=== PATIENT | male | born 1970 | race Caucasian/White ===

== ENCOUNTER 2020-04-19 12:15 | Inpatient (IN) | payer MEDICAID, SELFPAY ==
[2020-04-19] VITALS (7 sets, daily range): BP systolic 132–179; BP diastolic 67–90; PULSE 59–98; RESP 16–20; TEMP 36.3–36.5; O2SAT 98–100; BMI 24.7
--- NOTE | ~2020-04-19 | XR_ITS ---
EXAMINATION: XR abdomen/kub 1V EXAM DATE: 04/21/2020 15:45 INDICATION: Abdominal distention, constipation. TECHNIQUE: Frontal upright projection of the upper abdomen, frontal projection of the lower abdomen f or interpretation. Correlation is made to CT abdomen pelvis 04/19/2020. FINDINGS: There is moderate amount of colonic gas and stool. Nonobstructive bowel gas pattern. Lung bases are unremarkable. There are mild bony degenerative changes. There is no organomegaly. IMPRESSION: Moderate colonic stool and gas. Reviewed, dictated and finalized at location A.
--- NOTE | ~2020-04-19 | US_ITS ---
EXAMINATION: US right upper quadrant EXAM DATE: 04/20/2020 15:15 INDICATION: Pancreatitis, rule out gallstones. TECHNIQUE: Multiple grayscale and Doppler images of the abdomen right upper quadrant were obtained (b y a technologist who performed the scan) and subsequently reviewed. Comparison is made to prior exami nation from 03/08/2019. FINDINGS: The pancreatic head and body are normal in appearance. The pancreatic tail is not visualized. Mildl y echogenic liver parenchyma, hepatic steatosis. There are no focal liver lesions identified. Ther e is no evidence of intrahepatic biliary duct dilation. Portal venous flow was seen in the hepatoped al, normal direction and has normal Doppler waveform. No right-sided hydronephrosis. Common bile duct measures 4 mm, which is normal. The gallbladder wall is normal in thickness, with ex pected amount of distention. No sonographic evidence of pericholecystic fluid. There is no cholelit hiases. Technologist performing exam reports patient did not demonstrate sonographic Gan's sign. Please note that this sign is less reliable in patients who have received pain medication. IMPRESSION: 1. Hepatic steatosis. Reviewed, dictated and finalized at location A. IMPRESSION: 1. Hepatic steatosis.
--- NOTE | ~2020-04-19 | US_ITS ---
EXAMINATION: US venous doppler LE RT EXAM DATE: 04/20/2020 15:15 INDICATION: Right calf tenderness. TECHNIQUE: Multiple grayscale, color flow and Doppler images of the right lower extremity deep venous system were obtained and reviewed. There is no prior study for comparison. FINDINGS: The right common femoral, femoral and profunda veins demonstrate normal color flow, respira tory variation, augmentation and compressibility. Compressibility, color flow confirmed within the r ight popliteal, posterior tibial, peroneal, and greater saphenous veins. IMPRESSION: 1. No right lower extremity deep venous thrombosis. Reviewed, dictated and finalized at location A.
--- NOTE | ~2020-04-19 | CT_ITS ---
EXAMINATION: CT abdomen pelvis w con INDICATION: Pancreatitis, nausea and vomiting, abdominal pain TECHNIQUE: Computed tomographic images of the abdomen and pelvis were obtained after the administrati on of 100 cc of Omnipaque 350 intravenous contrast. The dose-length product (DLP) was 482.26 mGy-cm. Automated exposure control and iterative reconstruction technique were employed. COMPARISON: 04/15/2015 FINDINGS: Minimal dependent atelectasis is present in the lung bases. The heart size is normal. The l iver, spleen, gallbladder, and adrenal glands are normal. There is edema and enlargement of the head of the pancreas. There is edematous stranding of the peripancreatic fat. A small amount of fluid trac ks into the right anterior pararenal space and retroperitoneum. Mild wall thickening is seen in the s econd and third portions of the duodenum, likely secondary to pancreatic inflammation. The kidneys ar e unremarkable. There is calcified atherosclerosis of the aorta and many of the other arteries. No pa thologically enlarged abdominal or pelvic lymph nodes are identified. The appendix is normal. There i s no free intraperitoneal gas or evidence of bowel obstruction. Colonic diverticulosis is present wit hout evidence of diverticulitis. There is mild lumbar spondylosis. IMPRESSION: 1. Acute pancreatitis, likely interstitial edematous pancreatitis with acute peripancreatic fluid col lection. Reviewed, dictated and finalized at location B. IMPRESSION: 1. Acute pancreatitis, likely interstitial edematous pancreatitis with acute pe ripancreatic fluid collection.
[2020-04-19] MEDS: MORPHINE SULFATE 4 MG/ML INJ IV PUSH ×5 (12:49→21:27)
[2020-04-19] MEDS: SODIUM CHLORIDE 0.9% IV 1,000 ML 999 ML IV CONT (12:49)
[2020-04-19] MEDS: ONDANSETRON INJ 4 MG/2 ML VIAL IV PUSH ×2 (12:49→14:55)
[2020-04-19 12:50] LABS: Basophils Absolute Auto 0.1 K/mm3 (0.0-0.1); Basophils Percent Auto 0.5 % (0.2-1.2); Eosinophils Absolute Auto 0.1 K/mm3 (0-0.3); Eosinophils Percent Auto 0.7 % (0-4.4); Hematocrit 50.6 % (42.0-52.0); Hemoglobin 17.8 g/dL (14.0-18.0); Immature Granulocyte Absolute 0.07 K/mm3 (0.00-0.031); Immature Granulocyte Percent A 0.5 % (0-0.5); Lymphocytes Absolute Auto 1.79 K/mm3 (0.9-3.2); Lymphocytes Percent Auto 12.1 % (18.3-44.2); Mean Corpuscular HGB Conc 35.2 g/dl (32-36); Mean Corpuscular Hemoglobin 33.3 pg (26-34); Mean Corpuscular Volume 94.8 fl (80-100); Mean Platelet Volume 10.9 fl (7.4-10.4); Monocytes Percent Auto 6.7 % (2.6-8.5); Neutrophils Absolute Auto 11.8 K/mm3 (1.3-6.7); Neutrophils Percent Auto 79.5 % (45.5-73.1); Platelet Count Result 219 k/mm3 (150-375); Red Blood Count 5.34 M/mm3 (4.6-6.20); Red Cell Distribution Width 13.3 % (11.5-14.5); White Blood Count 14.9 K/mm3 (4.5-10.0)
--- NOTE | 2020-04-19 12:51 | ED.GENADULT ---
HPI - General Adult General Chief complaint: Abdominal Pain Stated complaint: Vomiting, Cramps Time Seen by Provider: 04/19/20 12:22 History of Present Illness HPI narrative: Patient is a 50-year-old male who presents ER with abdominal pain. Sudden onset this morning. Associated with nausea and vomiting. Patient reports pain is sharp and epigastric and radiates to the middle of his back. He has not had similar symptoms before. Reports he drank some alcohol last night. No food this morning. Has not had similar symptoms previously. Related Data Home Medications Medication Instructions Recorded Confirmed No Home Medications 04/19/20 04/19/20 Allergies Allergy/AdvReac Type Severity Reaction Status Date / Time No Known Allergies Allergy Verified 04/19/20 12:40 Review of Systems Review of Systems: All systems reviewed & are unremarkable except as noted in HPI and below Constitutional: Constitutional: Denies fever(s) and Denies weakness Cardiovascular: Cardiovascular: Denies chest pain and Denies radiating jaw, neck or arm pain Gastrointestinal: Gastrointestinal: Reports abdominal pain, Reports nausea and Reports vomiting PMFSH Past Medical History Medical History (Updated 04/19/20 @ 19:01 by Giovani Ontiveros MD) No pertinent past medical history Surgical History Surgical History (Updated 04/19/20 @ 13:13 by Giovani Ontiveros MD) No pertinent past surgical history Family History Family History (Updated 04/19/20 @ 18:34 by Esther Dunne RN) Father Lung cancer Heart disease Diabetes mellitus Social History Social History (Updated 04/19/20 @ 13:13 by Giovani Ontiveros MD) Alcohol intake: current Drinks per week: 30 Substance use: current Substance use type: marijuana Other substance usage details: marijuana 3 times day Last use: 04/18/2020 Gender identity (if verbalized by the patient): Male Spiritual care concerns: No Exam Narrative: Exam Narrative: GENERAL: Uncomfortable-appearing, well-nourished, and in mild distress. HEAD: Normocephalic, atraumatic. ENT: Mucous membranes moist. CHEST: Clear to auscultation. No respiratory distress. HEART: Regular rate and rhythm. Normal peripheral pulses. ABDOMEN: Soft, TTP in the epigastrium with guarding, no pulsatile mass, nondistended. EXTREMITIES: Normal range of motion. No edema. SKIN: Warm, dry, no rash. NEURO: Alert and oriented x3. Course Course Emergency Course: Admit to the hospitalist service. Multiple doses of pain medication given. Patient will be n.p.o. and hydrated. Vital Signs Vital signs: Vital Signs Temperature 97.6 F 04/19/20 12:17 Pulse Rate 59 L 04/19/20 12:17 Respiratory Rate 17 04/19/20 12:17 Blood Pressure 143/90 H 04/19/20 12:17 Pulse Oximetry 99 04/19/20 12:17 Temperature 97.3 F L 04/19/20 18:22 Pulse Rate 80 04/19/20 18:26 Respiratory Rate 20 04/19/20 18:26 Blood Pressure 132/70 04/19/20 18:26 Pulse Oximetry 99 04/19/20 18:26 Medical Decision Making Vital Signs Vital Signs: Vital Signs Temperature 97.6 F 04/19/20 12:17 Pulse Rate 59 L 04/19/20 12:17 Respiratory Rate 17 04/19/20 12:17 Blood Pressure 143/90 H 04/19/20 12:17 Pulse Oximetry 99 04/19/20 12:17 Temperature 97.3 F L 04/19/20 18:22 Pulse Rate 80 04/19/20 18:26 Respiratory Rate 20 04/19/20 18:26 Blood Pressure 132/70 04/19/20 18:26 Pulse Oximetry 99 04/19/20 18:26 Lab Data Result diagrams: 04/19/20 12:31 04/19/20 12:31 Labs: Lab Results 04/19/20 04/19/20 04/19/20 Range/Units 12:31 12:31 13:23 WBC 14.9 H (4.5-10.0) K/mm3 RBC 5.34 (4.6-6.20) M/mm3 Hgb 17.8 (14.0-18.0) g/dL Hct 50.6 (42.0-52.0) % MCV 94.8 (80-100) fl MCH 33.3 (26-34) pg MCHC 35.2 (32-36) g/dl RDW 13.3 (11.5-14.5) % Plt Count 219 (150-375) k/mm3 MPV 10.9 H (7.4-10.4) fl Immature Gran % (Auto) 0.5
[2020-04-19 13:36] LABS: Add Urine Microscopic? YES; Appearance Urine Cloudy (Clear); Bacteria Urine Trace /hpf; Bilirubin Urine Negative (Negative); Blood Urine Negative (Negative); Color Urine Yellow (Yellow); Glucose Urine UA Negative (Negative); Ketones Urine 1+ mg/dL (Negative); Leukocyte Esterase Ur Negative LEU/UL (Negative); Mucus Urine Rare /lpf; Nitrate Urine Negative (Negative); Protein Urine 2+ mg/dL (Negative); RBC Urine 0-2 /hpf (0-2); Specific Grav Ur 1.023 (1.001-1.035); Urobilinogen Urine Negative mg/dL (<2.0); WBC Urine 0-3 /hpf
[2020-04-19 13:37] LABS: Alanine Aminotransferase 39 U/L (4-50); Albumin Level 4.7 g/dL (3.5-5.1); Alkaline Phosphatase 95 U/L (38-126); Anion Gap 14.5 mmol/L (7-16); Aspartate Amino Transferase 29 U/L (17-59); Bilirubin,Total 0.6 mg/dL (0.2-1.3); Blood Urea Nitrogen 11 mg/dL (9-20); Calcium 9.7 mg/dL (8.4-10.2); Carbon Dioxide 25 mmol/L (22-30); Chloride 102 mmol/L (98-107); Estimated CRCL calculation 82 ml/min; Estimated Glomerular Filt Rate > 60; Glucose 158 mg/dL (75-110); Potassium 3.5 mmol/L (3.4-5.0); Sodium 138 mmol/L (137-145)
[2020-04-19 14:02] LABS: Lipase 4341 U/L (23-300)
[2020-04-19] MEDS: PANTOPRAZOLE SODIUM IV 40 MG VIAL IV PUSH (14:54)
--- NOTE | 2020-04-19 17:30 | PM.IMHP ---
H&P: HPI History of Present Illness Date/Time: 04/19/20 17:30 Chief complaint: Abdominal pain. Narrative: Robb Santoyo is a 23-lfhc-whw-male smoker with a longstanding history of alcohol abuse who presented to the emergency department earlier this afternoon via private vehicle from home for evaluation of abdominal pain. He has drank alcohol daily since about the age of 16, and in more recent years he has cut back on his drinking, now typically consuming 4 to 5 vodka drinks a night. Two nights ago, his son brought over 190 proof Everclear, of which he took a couple of swigs. He had the typical burning sensation with alcohol going down, but that sensation seemed to linger much longer and he had a burning pain throughout his stomach for several hours thereafter. Yesterday he still had some mild periumbilical discomfort, and he did not drink as much as usual however not long after drinking a screwdriver and 1/2 of a fuzzy navel, he developed a sudden onset of the worst pain of my life wrapping around my trunk which he describes as a severe ache / throbbing pain. It is occasionally sharp and will radiate into the back. He has not noticed any significant aggravating or alleviating factors. This morning he developed nausea and had 6 episodes of emesis and thus came in for evaluation. He was found to have acute pancreatitis on imaging and is being admitted in this setting. With further questioning, he denies having history of pancreatitis but tells me that over the past several months he has had intermittent abdominal discomfort, somewhat similar but to a lesser extent. He denies hematemesis, melena, and hematochezia. No chest pain or shortness of breath. He occasionally has GERD symptoms but he has no history of peptic ulcers. Review of Systems Review of Systems: Narrative: Twelve systems were reviewed with pertinent positives and negatives as per HPI. No fever. he denies recent cold and flu symptoms. No travel or sick contacts. He denies cough and shortness of breath. He has never had signs or symptoms of alcohol withdrawal, and specifically denies tremors, sweats, headache, and hallucinations. Except as documented, all other systems were reviewed and are negative. [facility] Past Medical History Medical History (Updated 04/19/20 @ 21:13 by Viki Cedillo PA-C) Alcoholism Tobacco dependence Surgical History Surgical History No pertinent past surgical history Family History Family History (Updated 04/19/20 @ 21:00 by Viki Cedillo PA-C) Father Lung cancer Heart disease Diabetes mellitus Other Alcoholism Social History Social History (Updated 04/19/20 @ 21:02 by Viki Cedillo PA-C) Social History: S urrogate decision maker: Rena Santoyo, . Code status: Full code. Smoking packs per day: 2 Smoking cigarettes per day: 40.0 Years smoked: 40 Smoking pack-years: 80.00 Smoking status: Current every day smoker Tobacco type: cigarettes and cigars Second hand tobacco smoke exposure: Yes Additional smoking assessment comments: Patient began smoking at age 12, and is now up to 2 packs a day. Alcohol intake: current Drinks per week: 30 Substance use: current Substance use type: marijuana Other substance usage details: Smokes marijuana 3 times a day. Last use: 04/18/2020 Additional living arrangements comments: Patient lives with his and their 5 children. Occupation/Education: unemployed Gender identity (if verbalized by the patient): Male Spiritual care concerns: No Meds Home Medications and Allergies Home Medications Medication Instructions Recorded Confirmed Type No Home Medications 04/19/20 04/19/20 History Allergies Allergy/AdvReac Type Severity Reaction Status Date / Time No Known Allergies Allergy Verified 04/19/20 12:40 Vital Signs Vital Signs - 24 hr 04/19/20 12:17 04/19/20 15
--- NOTE | 2020-04-19 18:10 | ADMGEN ---
This patient, Robb Santoyo, was admitted to Medical Room 346-01. Patient/family oriented to hospital policies and general routines including ID bracelet, bed and alarms, visiting hours, pain management, procedures, bathroom and other care routines, personal items, smoking policy, room service/diet, and visiting hours. Valuables list has been completed. Information on how to activate the Rapid Response Team has been discussed. Patient/Family are encouraged to report perceived risks to care and to ask questions if they do not understand what they are told or what they should do.
[2020-04-19] MEDS: SODIUM CHLORIDE 0.9% IV 1,000 ML 125 ML IV CONT (19:21)
[2020-04-19] MEDS: PROMETHAZINE HCL 25 MG/ML AMPUL 12.5 MG IV PUSH (21:27)
[2020-04-19] MEDS: THIAMINE HCL 200 MG/2 ML VIAL 100 MG IV PUSH (22:05)
[2020-04-20] VITALS (11 sets, daily range): BP systolic 143–163; BP diastolic 74–91; PULSE 74–86; RESP 16–18; TEMP 36.3–36.9; O2SAT 97–99
[2020-04-20] MEDS: MORPHINE SULFATE 4 MG/ML INJ IV PUSH ×2 (01:50→09:52)
[2020-04-20] MEDS: SODIUM CHLORIDE 0.9% IV 1,000 ML 125 ML IV CONT ×3 (03:54→20:40)
[2020-04-20] MEDS: PROMETHAZINE HCL 25 MG/ML AMPUL 12.5 MG IV PUSH ×4 (03:55→20:37)
[2020-04-20 06:33] LABS: Basophils Absolute Auto 0.1 K/mm3 (0.0-0.1); Basophils Percent Auto 0.4 % (0.2-1.2); Eosinophils Absolute Auto 0.1 K/mm3 (0-0.3); Eosinophils Percent Auto 0.9 % (0-4.4); Hematocrit 47.7 % (42.0-52.0); Hemoglobin 16.4 g/dL (14.0-18.0); Immature Granulocyte Absolute 0.05 K/mm3 (0.00-0.031); Immature Granulocyte Percent A 0.3 % (0-0.5); Lymphocytes Absolute Auto 2.15 K/mm3 (0.9-3.2); Lymphocytes Percent Auto 14.8 % (18.3-44.2); Mean Corpuscular HGB Conc 34.4 g/dl (32-36); Mean Corpuscular Hemoglobin 32.9 pg (26-34); Mean Corpuscular Volume 95.6 fl (80-100); Mean Platelet Volume 10.2 fl (7.4-10.4); Monocytes Absolute Auto 1.2 K/mm3 (0.1-0.6); Monocytes Percent Auto 8.3 % (2.6-8.5); Neutrophils Absolute Auto 10.9 K/mm3 (1.3-6.7); Neutrophils Percent Auto 75.3 % (45.5-73.1); Platelet Count Result 184 k/mm3 (150-375); Red Blood Count 4.99 M/mm3 (4.6-6.20); Red Cell Distribution Width 13.2 % (11.5-14.5); White Blood Count 14.5 K/mm3 (4.5-10.0)
[2020-04-20 08:17] LABS: Alanine Aminotransferase 28 U/L (4-50); Albumin Level 3.9 g/dL (3.5-5.1); Alkaline Phosphatase 68 U/L (38-126); Anion Gap 9 mmol/L (8-16); Aspartate Amino Transferase 23 U/L (17-59); Bilirubin,Total 0.5 mg/dL (0.2-1.3); Blood Urea Nitrogen 9 mg/dL (9-20); Calcium 8.6 mg/dL (8.4-10.2); Carbon Dioxide 24 mmol/L (22-30); Chloride 105 mmol/L (98-107); Estimated CRCL calculation 101 ml/min; Estimated Glomerular Filt Rate > 60; Glucose 110 mg/dL (75-110); Magnesium 1.6 mg/dL (1.6-2.3); Potassium 3.9 mmol/L (3.4-5.0); Sodium 138 mmol/L (137-145); Triglycerides 146 mg/dL (<150)
[2020-04-20 08:21] LABS: Lipase 8354 U/L (23-300)
[2020-04-20] MEDS: PANTOPRAZOLE SODIUM IV 40 MG VIAL IV PUSH ×2 (09:01→20:39)
[2020-04-20] MEDS: THIAMINE HCL 100 MG TABLET PO (10:55)
[2020-04-20] MEDS: FOLIC ACID 1 MG TABLET PO (11:46)
--- NOTE | 2020-04-20 12:25 | PM.IMPN ---
Progress Note: A&P Assessment and Plan (1) Acute pancreatitis: Code(s): K85.90 - Acute pancreatitis without necrosis or infection, unspecified Status: Acute Assessment and Plan: More than likely secondary to alcohol abuse. Lipase has increased to 8354. Supportive care with bowel rest, IV fluid rehydration, antiemetics, and analgesics as needed. Continue Protonix as he may very well have underlying gastritis. Will check RUQ US to rule out gallstone etiology Continue to trend lipase (2) Alcoholism: Code(s): F10.20 - Alcohol dependence, uncomplicated Status: Acute Assessment and Plan: He reports he drinks 6 beers daily. He denies ever having symptoms of alcohol withdrawal. [facility] protocol is in place Continue folic acid and thiamine supplementation. He seems motivated to curb his alcohol use. No symptoms of alcohol withdrawal at this time. (3) Tobacco dependence: Code(s): F17.200 - Nicotine dependence, unspecified, uncomplicated Status: Acute Assessment and Plan: He smokes 2 ppd. Nicotine patch available if needed. He declines need at this time. Continue to encourage smoking cessation. (4) Elevated blood pressure reading: Code(s): R03.0 - Elevated blood-pressure reading, without diagnosis of hypertension Status: Acute Assessment and Plan: Possibly related to pain. He has no documented history of HTN and is not on antihypertensives. Continue to trend closely as he may require antihypertensives. Consider adding agent if BP remains elevated. (5) Tenderness of right calf: Code(s): M79.661 - Pain in right lower leg Status: Acute Assessment and Plan: He complains of ongoing right calf pain and heaviness. He denies any injury to the area. No swelling or discoloration. Will check venous doppler to rule out DVT Subjective Date/time seen: 04/20/20 12:25 Interval history: Date of service: 04/20/2020 He is complaining of 8/10 diffuse abdominal pain that he describes as a squeezing sensation that wraps around to his back. He feels very nauseous. He vomited this morning. He endorses subjective fevers but denies chills. He has generalized body aches. He also complains of right calf tenderness and heaviness that has been ongoing several weeks. He denies shortness of breath, cough, chest pain, palpitations, weakness, dizziness, or lightheadedness. He has been NPO today. Review of Systems Review of Systems: Narrative: A 12 point review of systems was reviewed with pertinent positives and negatives as per HPI. Exam Narrative: Exam Narrative: Mr. Santoyo is a well nourished 50 year old male who is lying supine in bed. He appears comfortable and is in NARD. HR 81, BP 158/89, RR 16, T 97.6, 99% on room air Neuro: awake, alert and oriented x4, speech clear, no focal neuro deficits noted HEENMT: normocephalic, atraumatic, EOMI, sclerae anicteric, moist oral mucosa, normal oropharynx Neck: supple, no lymphadenopathy Respiratory: clear to auscultation bilaterally, nonlabored breathing Cardio: regular rate, regular rhythm with S1-S2 Abdomen: nondistended, normoactive bowel sounds, soft, diffusely tender to palpation, no rigidity or guarding Extremities: no edema, erythema, cyanosis, or clubbing, right calf is tender to palpation, Santo's sign negative, DP pulses 2+ bilaterally Skin: no rashes or lesions, warm and dry Psych: appropriate mood and affect Objective Data Vital Signs Vital Signs: Vital Signs - 24 hr 04/19/20 15:17 04/19/20 17:03 04/19/20 18:22 Temperature 97.3 F L Pulse Rate 74 66 83 Pulse Rate [Right Radial] Respiratory Rate 20 20 20 Blood Pressure 154/67 H 144/79 H 179/79 H Pulse Oximetry 99 99 98 04/19/20 18:26 04/19/20 21:54 04/19/20 21:55 Temperature 97.7 F 97.7 F Pulse Rate 80 98 98 Pulse Rate [Right Radial] Respiratory Rate 20 16 16 Blood Pressure 13
[2020-04-20] MEDS: MELATONIN 5 MG TABLET PO (20:39)
[2020-04-21] VITALS (7 sets, daily range): BP systolic 154–165; BP diastolic 84–93; PULSE 82–92; RESP 14–18; TEMP 36.6–37.1; O2SAT 97–100
[2020-04-21] MEDS: PROMETHAZINE HCL 25 MG/ML AMPUL 12.5 MG IV PUSH ×5 (02:37→22:16)
[2020-04-21] MEDS: SODIUM CHLORIDE 0.9% IV 1,000 ML 125 ML IV CONT ×3 (04:54→20:09)
[2020-04-21 05:54] LABS: Basophils Percent Auto 0.4 % (0.2-1.2); Eosinophils Absolute Auto 0.2 K/mm3 (0-0.3); Eosinophils Percent Auto 1.9 % (0-4.4); Hemoglobin 15.6 g/dL (14.0-18.0); Immature Granulocyte Absolute 0.05 K/mm3 (0.00-0.031); Immature Granulocyte Percent A 0.5 % (0-0.5); Lymphocytes Absolute Auto 2.45 K/mm3 (0.9-3.2); Lymphocytes Percent Auto 22.4 % (18.3-44.2); Mean Corpuscular HGB Conc 34.7 g/dl (32-36); Mean Corpuscular Hemoglobin 33.2 pg (26-34); Mean Corpuscular Volume 95.7 fl (80-100); Mean Platelet Volume 10.3 fl (7.4-10.4); Monocytes Percent Auto 9.2 % (2.6-8.5); Neutrophils Absolute Auto 7.2 K/mm3 (1.3-6.7); Neutrophils Percent Auto 65.6 % (45.5-73.1); Platelet Count Result 166 k/mm3 (150-375); Red Cell Distribution Width 13.2 % (11.5-14.5)
[2020-04-21 06:06] LABS: Alanine Aminotransferase 21 U/L (4-50); Albumin Level 3.7 g/dL (3.5-5.1); Alkaline Phosphatase 66 U/L (38-126); Anion Gap 9 mmol/L (8-16); Aspartate Amino Transferase 21 U/L (17-59); Bilirubin,Total 0.6 mg/dL (0.2-1.3); Blood Urea Nitrogen 8 mg/dL (9-20); Calcium 8.2 mg/dL (8.4-10.2); Carbon Dioxide 24 mmol/L (22-30); Chloride 104 mmol/L (98-107); Estimated CRCL calculation 101 ml/min; Estimated Glomerular Filt Rate > 60; Glucose 82 mg/dL (75-110); Lipase 1742 U/L (23-300); Potassium 3.8 mmol/L (3.4-5.0); Sodium 137 mmol/L (137-145)
[2020-04-21] MEDS: PANTOPRAZOLE SODIUM IV 40 MG VIAL IV PUSH ×2 (09:00→20:10)
[2020-04-21] MEDS: MELATONIN 5 MG TABLET PO (12:25)
[2020-04-21] MEDS: THIAMINE HCL 100 MG TABLET PO (12:25)
[2020-04-21] MEDS: FOLIC ACID 1 MG TABLET PO (13:01)
--- NOTE | 2020-04-21 14:43 | PM.IMPN ---
Progress Note: A&P Assessment and Plan (1) Acute pancreatitis: Qualifiers: Pancreatitis type: alcohol induced Acute pancreatitis complication: unspecified Qualified Code(s): K85.20 - Alcohol induced acute pancreatitis without necrosis or infection Code(s): K85.90 - Acute pancreatitis without necrosis or infection, unspecified Status: Acute Assessment and Plan: More than likely secondary to alcohol abuse. Lipase has declined to 1742. RUQ U/S shows no evidence of gallstone etiology. Supportive care with bowel rest, IV fluid rehydration, antiemetics, and analgesics as needed. Continue NPO diet at this time. Advance to clear liquids when tolerated. Continue Protonix as he may very well have underlying gastritis. Continue to trend lipase Given diffuse abdominal pain, nausea, vomiting, and inability to pass gas or stool, will check KUB for any evidence of obstruction. (2) Alcoholism: Code(s): F10.20 - Alcohol dependence, uncomplicated Status: Acute Assessment and Plan: He reports he drinks 6 beers daily. He denies ever having symptoms of alcohol withdrawal. [facility] protocol is in place Continue folic acid and thiamine supplementation. He seems motivated to curb his alcohol use. No symptoms of alcohol withdrawal at this time. (3) Tobacco dependence: Code(s): F17.200 - Nicotine dependence, unspecified, uncomplicated Status: Acute Assessment and Plan: He smokes 2 ppd. Nicotine patch available if needed. He declines need at this time. Continue to encourage smoking cessation. (4) Elevated blood pressure reading: Code(s): R03.0 - Elevated blood-pressure reading, without diagnosis of hypertension Status: Acute Assessment and Plan: Possibly related to pain. He has no documented history of HTN and is not on antihypertensives. Continue to trend closely as he may require antihypertensives. BP remains elevated, although pain is still quite severe. Will continue to monitor and consider addition of antihypertensive agent. (5) Tenderness of right calf: Code(s): M79.661 - Pain in right lower leg Status: Acute Assessment and Plan: He complains of ongoing right calf pain and heaviness. He denies any injury to the area. No swelling or discoloration. Venous Doppler is negative for DVT. Supportive care with heat or ice as needed. Subjective Date/time seen: 04/21/20 14:43 Interval history: Date of service: 04/21/2020 His pain is an improved today. He endorses 8/10 diffuse abdominal pain at this time that wraps around and radiates towards back. He has very brief relief with pain medication but his pain returns shortly thereafter. He is still NPO at this time. He tells me that he feels his abdomen is firm. He has not had a bowel movement or passed any gas. He has belched. He feels quite nauseous and has had small amounts of emesis today. He endorses subjective fever but denies chills. He denies weakness, dizziness, or lightheadedness. He denies shortness of breath, cough, chest pain, or palpitations. He denies any symptoms of alcohol withdrawal including agitation or tremors. He denies dysuria or hematuria. Review of Systems Review of Systems: Narrative: A 12 point review of systems was reviewed with pertinent positives and negatives as per HPI. Exam Narrative: Exam Narrative: Mr. Santoyo is a well nourished 50 year old male who is lying supine in bed. He appears comfortable and is in NARD. HR Eighty-three, BP 163/86, R 18, T 97.8?, 98% on room air Neuro: awake, alert and oriented x4, speech clear, no focal neuro deficits noted HEENMT: normocephalic, atraumatic, EOMI, sclerae anicteric, moist oral mucosa, normal oropharynx Neck: supple, no lymphadenopathy Respiratory: clear to auscultation bilaterally, nonlabored breathing Cardio: regular rate, regular rhythm with S1-S2 Abd
[2020-04-22] MEDS: PROMETHAZINE HCL 25 MG/ML AMPUL 12.5 MG IV PUSH ×6 (02:19→23:09)
[2020-04-22] MEDS: SODIUM CHLORIDE 0.9% IV 1,000 ML 125 ML IV CONT ×3 (04:22→20:23)
[2020-04-22 05:24] VITALS: BP 152/89; PULSE 84; RESP 14; TEMP 36.3; O2SAT 100
[2020-04-22 05:53] LABS: Hematocrit 41.7 % (42.0-52.0); Hemoglobin 14.6 g/dL (14.0-18.0); Mean Corpuscular Hemoglobin 33.3 pg (26-34); Mean Corpuscular Volume 95.2 fl (80-100); Mean Platelet Volume 10.2 fl (7.4-10.4); Platelet Count Result 163 k/mm3 (150-375); Red Blood Count 4.38 M/mm3 (4.6-6.20); Red Cell Distribution Width 12.8 % (11.5-14.5); White Blood Count 9.6 K/mm3 (4.5-10.0)
[2020-04-22 06:18] LABS: Alanine Aminotransferase 17 U/L (4-50); Albumin Level 3.5 g/dL (3.5-5.1); Alkaline Phosphatase 63 U/L (38-126); Anion Gap 9 mmol/L (8-16); Aspartate Amino Transferase 21 U/L (17-59); Bilirubin,Total 0.6 mg/dL (0.2-1.3); Blood Urea Nitrogen 10 mg/dL (9-20); Calcium 7.8 mg/dL (8.4-10.2); Carbon Dioxide 21 mmol/L (22-30); Chloride 105 mmol/L (98-107); Estimated CRCL calculation 115 ml/min; Estimated Glomerular Filt Rate > 60; Glucose 72 mg/dL (75-110); Lipase 971 U/L (23-300); Potassium 3.4 mmol/L (3.4-5.0); Sodium 135 mmol/L (137-145)
[2020-04-22 08:55] VITALS: RESP 16; O2SAT 100
[2020-04-22] MEDS: DOCUSATE SODIUM 100 MG CAPSULE PO ×2 (09:01→20:19)
[2020-04-22] MEDS: polyethylene glycoL 3350 17 GM POWD.PACK PO (09:02)
[2020-04-22] MEDS: PANTOPRAZOLE SODIUM IV 40 MG VIAL IV PUSH ×2 (09:02→20:19)
[2020-04-22] MEDS: FOLIC ACID 1 MG TABLET PO (09:03)
[2020-04-22] MEDS: THIAMINE HCL 100 MG TABLET PO (09:03)
[2020-04-22] MEDS: LIDOCAINE 5% PATCH 1 PATCH TRANSDERM (09:03)
--- NOTE | 2020-04-22 13:09 | PM.IMPN ---
Progress Note: A&P Assessment and Plan (1) Acute pancreatitis: Qualifiers: Acute pancreatitis complication: unspecified Pancreatitis type: alcohol induced Qualified Code(s): K85.20 - Alcohol induced acute pancreatitis without necrosis or infection Code(s): K85.90 - Acute pancreatitis without necrosis or infection, unspecified Status: Acute Assessment and Plan: More than likely secondary to alcohol abuse. Lipase has declined to 971. RUQ U/S shows no evidence of gallstone etiology. Supportive care with bowel rest, IV fluid rehydration, antiemetics, and analgesics as needed. Continue NPO diet at this time. Advance to clear liquids tonight Continue Protonix as he may very well have underlying gastritis. Continue to trend lipase (2) Alcoholism: Code(s): F10.20 - Alcohol dependence, uncomplicated Status: Acute Assessment and Plan: He reports he drinks 6 beers daily. He denies ever having symptoms of alcohol withdrawal. [facility] protocol is in place Continue folic acid and thiamine supplementation. He seems motivated to curb his alcohol use. No symptoms of alcohol withdrawal at this time. (3) Tobacco dependence: Code(s): F17.200 - Nicotine dependence, unspecified, uncomplicated Status: Acute Assessment and Plan: He smokes 2 ppd. Nicotine patch available if needed. He declines need at this time. Continue to encourage smoking cessation. (4) Elevated blood pressure reading: Code(s): R03.0 - Elevated blood-pressure reading, without diagnosis of hypertension Status: Acute Assessment and Plan: Possibly related to pain. He has no documented history of HTN and is not on antihypertensives. Will begin amlodipine for blood pressure control as BP remains consistently elevated Continue to monitor pressures closely. Expect modest elevation secondary to pain. (5) Tenderness of right calf: Code(s): M79.661 - Pain in right lower leg Status: Acute Assessment and Plan: He complains of ongoing right calf pain and heaviness. He denies any injury to the area. No swelling or discoloration. Venous Doppler is negative for DVT. Supportive care with heat or ice as needed. Subjective Date/time seen: 04/22/20 13:09 Interval history: Date of service: 04/22/2020 He is feeling a bit better today. His pain improved overnight but he did have another episode of rather significant pain this morning. He has been dry heaving but has not had any emesis. He still feels nauseous. He denies fevers, chills, or sweats. He had a little headache this morning. He denies dizziness or lightheadedness. He is still NPO. He would like to attempt clear liquids tonight. He reports passing a lot of gas today but has not had a bowel movement. He denies any urinary symptoms. He has not had any tremors. He did feel a bit agitated this morning but at this time he is calm. Review of Systems Review of Systems: Narrative: A 12 point review of systems was reviewed with pertinent positives and negatives as per HPI. Exam Narrative: Exam Narrative: Mr. Santoyo is a well nourished 50 year old male who is lying supine in bed. He appears comfortable and is in NARD. HR 84, BP 152/89, RR 14, T 97.3?, 100% on room air Neuro: awake, alert and oriented x4, speech clear, no focal neuro deficits noted, no tremors HEENMT: normocephalic, atraumatic, EOMI, sclerae anicteric, moist oral mucosa, normal oropharynx Neck: supple, no lymphadenopathy Respiratory: clear to auscultation bilaterally, nonlabored breathing Cardio: regular rate, regular rhythm with S1-S2 Abdomen: nondistended, normoactive bowel sounds, somewhat firm, nontender to palpation, no rigidity or guarding Extremities: no edema, erythema, cyanosis, clubbing, or tenderness to palpation, Santo's sign negative, DP pulses 2+ bilaterally Skin: no rashes or lesions, warm and dry
[2020-04-22 14:00] VITALS: BP 163/80; PULSE 85; RESP 18; TEMP 36.8; O2SAT 100
[2020-04-22 20:11] VITALS: BP 157/83; PULSE 82; RESP 18; TEMP 36.5; O2SAT 98
[2020-04-22] MEDS: MELATONIN 5 MG TABLET PO (23:08)
[2020-04-23] MEDS: PROMETHAZINE HCL 25 MG/ML AMPUL 12.5 MG IV PUSH ×2 (03:35→08:32)
[2020-04-23] MEDS: SODIUM CHLORIDE 0.9% IV 1,000 ML 125 ML IV CONT (04:36)
[2020-04-23 05:47] VITALS: BP 133/61; PULSE 72; RESP 18; TEMP 37.1; O2SAT 98
[2020-04-23 06:15] LABS: Hematocrit 42.2 % (42.0-52.0); Hemoglobin 14.8 g/dL (14.0-18.0); Mean Corpuscular HGB Conc 35.1 g/dl (32-36); Mean Corpuscular Hemoglobin 33.6 pg (26-34); Mean Corpuscular Volume 95.7 fl (80-100); Mean Platelet Volume 10.9 fl (7.4-10.4); Platelet Count Result 171 k/mm3 (150-375); Red Blood Count 4.41 M/mm3 (4.6-6.20); Red Cell Distribution Width 12.7 % (11.5-14.5); White Blood Count 8.7 K/mm3 (4.5-10.0)
[2020-04-23 06:35] LABS: Alanine Aminotransferase 19 U/L (4-50); Albumin Level 3.6 g/dL (3.5-5.1); Alkaline Phosphatase 73 U/L (38-126); Anion Gap 10 mmol/L (8-16); Aspartate Amino Transferase 24 U/L (17-59); Bilirubin,Total 0.8 mg/dL (0.2-1.3); Blood Urea Nitrogen 7 mg/dL (9-20); Calcium 8.1 mg/dL (8.4-10.2); Carbon Dioxide 21 mmol/L (22-30); Chloride 106 mmol/L (98-107); Estimated CRCL calculation 115 ml/min; Estimated Glomerular Filt Rate > 60; Glucose 96 mg/dL (75-110); Lipase 712 U/L (23-300); Potassium 3.6 mmol/L (3.4-5.0); Sodium 137 mmol/L (137-145)
[2020-04-23] MEDS: PANTOPRAZOLE SODIUM IV 40 MG VIAL IV PUSH ×2 (08:24→20:40)
[2020-04-23] MEDS: THIAMINE HCL 100 MG TABLET PO (08:37)
[2020-04-23] MEDS: LIDOCAINE 5% PATCH 1 PATCH TRANSDERM (08:37)
[2020-04-23] MEDS: polyethylene glycoL 3350 17 GM POWD.PACK PO (08:37)
[2020-04-23] MEDS: FOLIC ACID 1 MG TABLET PO (08:37)
[2020-04-23] MEDS: DOCUSATE SODIUM 100 MG CAPSULE PO ×2 (08:37→20:40)
[2020-04-23 11:32] VITALS: BMI 24.5
[2020-04-23 14:00] VITALS: BP 129/62; PULSE 81; RESP 18; TEMP 36.6; O2SAT 100
--- NOTE | 2020-04-23 16:08 | PM.IMPN ---
Progress Note: A&P Assessment and Plan (1) Acute pancreatitis: Qualifiers: Acute pancreatitis complication: unspecified Pancreatitis type: alcohol induced Qualified Code(s): K85.20 - Alcohol induced acute pancreatitis without necrosis or infection Code(s): K85.90 - Acute pancreatitis without necrosis or infection, unspecified Status: Acute Assessment and Plan: More than likely secondary to alcohol abuse. Lipase has declined to 712. RUQ U/S shows no evidence of gallstone etiology. Pain has significantly improved. Patient willing to advance diet even further this evening Supportive care with IV fluid rehydration earlier in stay, antiemetics, and analgesics as needed. Will do soft, low fat/low residue diet this evening Continue Protonix as he may very well have underlying gastritis. Continue to trend lipase Consider discharge in 1-2 days if continued clinical improvement (2) Alcoholism: Code(s): F10.20 - Alcohol dependence, uncomplicated Status: Acute Assessment and Plan: He reports he drinks 6 beers daily. He denies ever having symptoms of alcohol withdrawal. Discussed alcohol cessation in length with patient today. CIWA protocol is in place Continue folic acid and thiamine supplementation. He seems motivated to curb his alcohol use. No symptoms of alcohol withdrawal at this time. (3) Tobacco dependence: Code(s): F17.200 - Nicotine dependence, unspecified, uncomplicated Status: Acute Assessment and Plan: He smokes 2 ppd. Encouraged smoking cessation for at least 4 minutes Nicotine patch available if needed. He declines need at this time. Continue to encourage smoking cessation. (4) Elevated blood pressure reading: Code(s): R03.0 - Elevated blood-pressure reading, without diagnosis of hypertension Status: Acute Assessment and Plan: BP has significantly improved today. Possibly related to pain. He has no documented history of HTN and is not on antihypertensives. Continue to monitor pressures closely. Expect modest elevation secondary to pain. F/u with PCP (5) Tenderness of right calf: Code(s): M79.661 - Pain in right lower leg Status: Acute Assessment and Plan: He complains of ongoing right calf pain and heaviness. He denies any injury to the area. No swelling or discoloration. Venous Doppler is negative for DVT. Supportive care with heat or ice as needed. Subjective Date/time seen: 04/23/20 16:08 Interval history: Patient is a 50 yo male smoker with longstanding history of alcohol abuse who is here for management of acute pancreatitis. Patient tells me he is feeling much better this afternoon, even after having FLD this afternoon. His abdominal pain is very minimal this afternoon. He states he has not needed his IV pain med since this morning. He has no other complaints. He is willing to advance his diet this evening. Denies f/c/s, headaches, dizziness, lightheadedness, changes in v/h, cp/palpitations, sob/cough, n/v/d/c, changes in BMs, dysuria, hematuria, cloudy urine. Review of Systems Review of Systems: All systems reviewed & are unremarkable except as noted in HPI and below Exam Narrative: Exam Narrative: Patient sitting upright in bed at time of visit. Family in room visiting Const: General: cooperative, healthy appearing, comfortable, no acute distress, well developed, alert, awake and Physically active Orientation/consciousness: patient oriented x3 HENMT: Head: normocephalic and atraumatic General nose exam: Normal nares present Face and sinus: face symmetric Mouth: Yes moist mucous membranes Throat: posterior oropharynx normal Eyes: General: appearance normal, both eyes and a
[2020-04-23] MEDS: MELATONIN 5 MG TABLET PO (20:40)
[2020-04-23 21:47] VITALS: BP 143/74; PULSE 76; RESP 18; TEMP 36.6; O2SAT 99
[2020-04-24 05:33] LABS: Hematocrit 43.8 % (42.0-52.0); Hemoglobin 15.4 g/dL (14.0-18.0); Mean Corpuscular HGB Conc 35.2 g/dl (32-36); Mean Corpuscular Hemoglobin 32.9 pg (26-34); Mean Corpuscular Volume 93.6 fl (80-100); Platelet Count Result 205 k/mm3 (150-375); Red Blood Count 4.68 M/mm3 (4.6-6.20); Red Cell Distribution Width 12.7 % (11.5-14.5); White Blood Count 8.5 K/mm3 (4.5-10.0)
[2020-04-24 05:36] VITALS: BP 153/83; PULSE 75; RESP 18; TEMP 36.2; O2SAT 99
[2020-04-24 05:54] LABS: Anion Gap 7 mmol/L (8-16); Blood Urea Nitrogen 7 mg/dL (9-20); Calcium 8.8 mg/dL (8.4-10.2); Carbon Dioxide 27 mmol/L (22-30); Chloride 105 mmol/L (98-107); Estimated CRCL calculation 101 ml/min; Estimated Glomerular Filt Rate > 60; Glucose 103 mg/dL (75-110); Lipase 1042 U/L (23-300); Magnesium 2.2 mg/dL (1.6-2.3); Potassium 4.1 mmol/L (3.4-5.0); Sodium 139 mmol/L (137-145)
[2020-04-24] MEDS: THIAMINE HCL 100 MG TABLET PO (08:20)
[2020-04-24] MEDS: PANTOPRAZOLE 40 MG TABLET PO (08:20)
[2020-04-24] MEDS: FOLIC ACID 1 MG TABLET PO (08:20)
[2020-04-24] MEDS: DOCUSATE SODIUM 100 MG CAPSULE PO (08:20)
--- NOTE | 2020-04-24 11:37 | PM.DS ---
DS: Admitting Diagnosis Admitting Diagnosis Admitting Diagnosis: Acute pancreatitis without necrosis or infection, unspecified DS: Discharge Diagnosis Discharge Diagnosis (1) Acute pancreatitis: Qualifiers: Acute pancreatitis complication: unspecified Pancreatitis type: alcohol induced Qualified Code(s): K85.20 - Alcohol induced acute pancreatitis without necrosis or infection Code(s): K85.90 - Acute pancreatitis without necrosis or infection, unspecified Status: Acute Assessment and Plan: More than likely secondary to alcohol abuse. Lipase has slightly increased to 1042 today, although patient asymptomatic, not requiring any pain medications or antimetics . RUQ U/S shows no evidence of gallstone etiology. Patient tolerating soft, low fat/low residue diet. Does note getting ice cream last night for unclear reasons; reiterated low fat diet Supportive care with IV fluid rehydration earlier in stay, antiemetics, and analgesics as needed. Will do soft, low fat/low residue diet at discharge; advance diet as tolerated over the next week F/u with PCP Will prescribe PPI at discharge for possible gastritis Continue to trend lipase early next week discharge home today (2) Alcoholism: Code(s): F10.20 - Alcohol dependence, uncomplicated Status: Acute Assessment and Plan: He reports he drinks 6 beers daily. He denies ever having symptoms of alcohol withdrawal. Discussed alcohol cessation in length with patient again today. CIWA protocol is in place Folic acid and thiamine supplementation during stay He seems motivated to curb his alcohol use. No symptoms of alcohol withdrawal at this time. (3) Tobacco dependence: Code(s): F17.200 - Nicotine dependence, unspecified, uncomplicated Status: Acute Assessment and Plan: He smokes 2 ppd. Encouraged smoking cessation for at least 4 minutes again today Nicotine patch available if needed during stay. (4) Elevated blood pressure reading: Code(s): R03.0 - Elevated blood-pressure reading, without diagnosis of hypertension Status: Acute Assessment and Plan: BP elevated again today. Patient feels anxious in hospital as well. Possibly related to pain as well. He has no documented history of HTN and is not on antihypertensives. He states he has BP cuff at home and is agreeable to check once daily and f/u with PCP F/u with PCP once established (5) Tenderness of right calf: Code(s): M79.661 - Pain in right lower leg Status: Acute Assessment and Plan: He complains of ongoing right calf pain and heaviness. He denies any injury to the area. No swelling or discoloration. Improved today. Venous Doppler is negative for DVT. Supportive care with heat or ice as needed. DS: Summary Hospital Course Reason for hospitalization: Alcohol induced pancreatitis Hospital Course: Patient is a 50 yo M with long standing history of smking and alcohol abuse who presented to the ED on 04/19 via private vehicle from home for evaluation of abdominal pain. Patient had been drinking alcohol daily since the age of 16; he had been drinking the day of presentation as well. While in the ED, Ct of abd/pelvis showed acute pancreatitis and lipase was elevated to 4341. Patient admitted under this setting. Please see H&P for further details. Presenting VS: Temp Pulse Resp BP Pulse Ox 97.6 F 59 L 17 143/90 H 99 04/19/20 12:17 04/19/20 12:17 04/19/20 12:17 04/19/20 12:17 04/19/20 12:17 Presenting Pertinent labs: lipase 4341 (peak 6354, 1042 on 04/24). CBC, chemistry, UA otherwise unremarkable Micro: noen Imaging: Abdomen/Pelvis CT 04/19/20 16:02 IMPRESSION: 1. Acute pancreatitis, likely interstitial maddison
== END 2020-04-24 13:12 | disposition home or self-care (01) | DRG 282 ==
LOC: ANHED 16:27 → ANH3MED 16:54
PROVIDERS: Physician Assistant; Admitting Provider Family Medicine; Emergency Provider Emergency Medicine; Visit Provider Physician Assistant
DX: K85.20 Alcohol induced acute pancreatitis without necrosis or infection (principal); F10.20 Alcohol dependence, uncomplicated; F17.210 Nicotine dependence, cigarettes, uncomplicated; R03.0 Elevated blood-pressure reading, without diagnosis of hypertension; M79.661 Pain in right lower leg
CPT/HCPCS: 36415; 74018; 74177; 76705; 80048; 80053; 81001; 83690; 83735; 84478; 85025; 85027; 93971; 96361; 96374; 96375; 96376; 99285; A9270; C9113; G0378; G0379; J1170; J2270; J2405; J2550; J3411; J7030; Q9967

== ENCOUNTER 2021-01-13 13:42 | Emergency (ER) | payer OTHER, SELFPAY ==
[2021-01-13 13:53] VITALS: BP 135/76; PULSE 101; RESP 16; TEMP 36.4; O2SAT 100
--- NOTE | 2021-01-13 13:59 | ED.MALEGU ---
HPI - Male Genitourinary General Chief complaint: Urogenital-Male Stated complaint: Swollen Testicle Source: patient and RN notes reviewed Limitations: no limitations History of Present Illness HPI Narrative: The patient, previously mostly healthy, presents with swollen testicle. Patient states he has at least a week long history of gradual onset , right testicle pain that is mild, worse with pressure better with elevation. Patient states he had a recent experimental heterosexual perianal sex. No fever, abdominal pain, rash, discharge; patient advised to inform partner of his diagnosis Related Data Allergies Allergy/AdvReac Type Severity Reaction Status Date / Time No Known Allergies Allergy Verified 01/16/21 08:28 Review of Systems Review of Systems: Narrative: General/Constitutional: No weight loss,fever Eyes: N0: Redness,discharge Ears/Nose/Throat: No: Epistaxis,ear discharge Respiratory: Denies: Hemoptysis Gastrointestinal: No Vomiting, Bleeding-rectal Skin: No Lumps, eruption Neurologic: No Focal Weakness,Sz Hematologic: Denies: Petechiae/Purpura Psychiatric: No: Suicida ideationl All Other Systems: Reviewed and Negative [facility] Past Medical History Medical History Alcoholism Tobacco dependence Surgical History Surgical History No pertinent past surgical history Family History Family History Father Lung cancer Heart disease Diabetes mellitus Other Alcoholism Social History Social History Social History: S urrogate decision maker: Rena Santoyo, . Code status: Full code. Smoking packs per day: 2 Smoking cigarettes per day: 40.0 Years smoked: 15 Smoking pack-years: 30.00 Smoking status: Current every day smoker Tobacco type: cigarettes Second hand tobacco smoke exposure: Yes Additional smoking assessment comments: Patient began smoking at age 12, and is now up to 2 packs a day. Alcohol intake: current Drinks per week: 8 Substance use: current Substance use type: marijuana Other substance usage details: Smokes marijuana 3 times a day. Last use: 04/18/2020 Additional living arrangements comments: Patient lives with his and their 5 children. Gender identity (if verbalized by the patient): Male Spiritual care concerns: No Comments At time of signature, agree with nursing past medical, surgical, social and family history. There is no relevant family history pertinent to the presenting complaint Exam Narrative: Exam Narrative: General Appearance: Well appearing, No distress, Conjunctiva clear Ears: External ear normal Nose: Normal nose Mouth/Throat: Normal appearing, Normal lips Neck: Supple Respiratory: Airway patent, No respiratory distress Cardiovascular: RRR Abdomen: Soft, Non-tender, circumcised phallus bilateral descended testicles, with right testicular swelling gege posteriorly Musculoskeletal: Full ROM Skin: Warm, Dry Neurological: A&O x3, Normal affect Course Vital Signs Vital signs: Vital Signs Temperature 97.6 F 01/13/21 13:53 Pulse Rate 101 H 01/13/21 13:53 Respiratory Rate 16 01/13/21 13:53 Blood Pressure 135/76 01/13/21 13:53 Pulse Oximetry 100 01/13/21 13:53 Temperature 97.6 F 01/13/21 13:53 Pulse Rate 101 H 01/13/21 13:53 Respiratory Rate 16 01/13/21 13:53 Blood Pressure 135/76 01/13/21 13:53 Pulse Oximetry 100 01/13/21 13:53 MDM - Male Genitourinary Lab Data Labs: Lab Results 01/13/21 Range/Units 13:50 C.trachomatis RNA (TMA) Detected A (Not Detected) N.gonorrhoeae RNA (TMA) Not detected (Not Detected) Discharge Plan Discharge Clinical Impression: Epididymitis, Chlamydia trachomatis infection Patient Disposi
[2021-01-13] MEDS: cefTRIAXone 1 GM VIAL 0.5 GM IM (14:09)
== END 2021-01-13 14:38 | disposition home or self-care (01) ==
PROVIDERS: Emergency Provider Emergency Medicine
DX: N45.1 Epididymitis (principal); A74.9 Chlamydial infection, unspecified; F17.210 Nicotine dependence, cigarettes, uncomplicated
CPT/HCPCS: 81003; 87086; 87491; 87591; 96372; 99213; G0463; J0696

== ENCOUNTER 2021-01-15 02:08 | Inpatient (IN) | payer OTHER, SELFPAY ==
[2021-01-15] VITALS (7 sets, daily range): BP systolic 139–173; BP diastolic 69–92; PULSE 58–88; RESP 16–26; TEMP 36.1–36.9; O2SAT 95–100; BMI 25.9
--- NOTE | ~2021-01-15 | CT_ITS ---
EXAMINATION: CT abdomen pelvis w con EXAM DATE: 01/15/2021 03:32 INDICATION: Abdominal pain. Nausea. TECHNIQUE: Spiral CT of the abdomen and pelvis was performed following intravenous injection of 100 m L Omnipaque 350. Axial, coronal and sagittal images of the abdomen and pelvis were reviewed. The do se-length product (DLP) for this examination was 453.27 mGy-cm. The exposure was tailored according to patient size (auto mA exposure control), and iterative reconstruction (ASIR) was used as additiona l dose reduction technique. Comparison is made to prior examination from 04/19/2020. FINDINGS: Pancreatic head and uncinate are edematous, also edema between this and the duodenum. Proba chris acute uncomplicated pancreatitis, correlate with amylase and lipase levels. There was similar skye earance on prior study. The liver, spleen, adrenal glands and pancreas are otherwise unremarkable. G allbladder is unremarkable. No biliary obstruction. Portal and splenic veins are patent. Kidneys e nhance symmetrically. There is no hydronephrosis. The prostate is unremarkable. The bladder is un remarkable. There is no retroperitoneal or pelvic lymphadenopathy. There is mild scattered arterio sclerotic disease. Slight dilation of the lower abdominal aorta to 2.6 cm versus 2.1 cm above. Small bilateral inguinal fat-containing hernias. The appendix is normal. There is mild to moderate sigmoid colonic diverticulosis. There is no adjace nt inflammatory change to suggest diverticulitis. The stomach and small bowel are unremarkable. Ther e is expected amount of colonic stool. No free intraperitoneal gas. The heart is normal in size. There are no pericardial or pleural effusions. The lung bases are unremarkable. There are no osteo blastic or osteolytic lesions identified. IMPRESSION: 1. Findings consistent with acute uncomplicated pancreatitis. 2. Mild to moderate sigmoid diverticulosis. 3. Mildly aneurysmal lower abdominal aorta. 4. Small inguinal hernias. Reviewed, dictated and finalized at location B.
--- NOTE | ~2021-01-15 | US_ITS ---
EXAMINATION: US scrotum doppler EXAM DATE: 01/15/2021 09:11 INDICATION: Scrotal pain and swelling, right side. TECHNIQUE: Multiple grayscale and Doppler images of the testicles and scrotum were obtained bilateral ly. There is no prior study for comparison. FINDINGS: Right testicle measures 4.2 x 3.7 x 2.8 cm and is morphologically normal. Low resistance Doppler jazlyn w confirmed, possibly slightly hypervascular compared to contralateral side. The epididymis body appe ars edematous and hypervascular. There is a moderate hydrocele. There is no hydrocele or varicocele. Left testicle measures 4.8 x 2.6 x 2.5 cm and is morphologically normal. Low resistance Doppler flow confirmed. The epididymis is unremarkable. There is no hydrocele or varicocele. IMPRESSION: 1. Right-sided epididymitis or epididymoorchitis. 2. Moderate right hydrocele. Reviewed, dictated and finalized at location B.
--- NOTE | 2021-01-15 02:19 | ECG_ITS ---
Measurements Intervals Freedom Rate: 80 P: 73 IL: 144 QRS: 73 QRSD: 140 T: 52 QT: 369 QTc: 428 Interpretive Statements SINUS RHYTHM RIGHT BUNDLE BRANCH BLOCK BASELINE ARTIFACT- II, III, AVR, AVF, V2-V6 ABNORMAL ECG Electronically Signed On 01-15-2021 7:08:31 CDT by Olivier Feliciano D.O.
--- NOTE | 2021-01-15 02:31 | ED.GENADULT ---
HPI - General Adult General Chief complaint: Chest Pain Stated complaint: Chest pain Time Seen by Provider: 01/15/21 02:20 History of Present Illness HPI narrative: Patient is a 50-year-old gentleman who presents the emergency department with chief complaint of epigastric pain. The patient reports he has prior history of pancreatitis and reports this evening he had sudden onset of pain in the epigastric area patient reports has had episodes of nausea and vomiting. Patient states that the pain is severe and worse than whenever he had pancreatitis in the past. Patient reports that its been about a week or so since he last drank patient reports that he has had a negative stress test in the last couple years. Related Data Allergies Allergy/AdvReac Type Severity Reaction Status Date / Time No Known Allergies Allergy Verified 01/15/21 02:08 Review of Systems Review of Systems: Narrative: A 10 system review of systems was completed on the patient and is negative except for what is stated in the HPI. Nursing and ancillary documentation was reviewed. COUNTS INCLUDE 234 BEDS AT THE [facility] Past Medical History Medical History Alcoholism Tobacco dependence Surgical History Surgical History No pertinent past surgical history Family History Family History Father Lung cancer Heart disease Diabetes mellitus Other Alcoholism Social History Social History Social History: S urrogate decision maker: Rena Santoyo, . Code status: Full code. Smoking packs per day: 2 Smoking cigarettes per day: 40.0 Years smoked: 40 Smoking pack-years: 80.00 Smoking status: Current every day smoker Tobacco type: cigarettes and cigars Second hand tobacco smoke exposure: Yes Additional smoking assessment comments: Patient began smoking at age 12, and is now up to 2 packs a day. Alcohol intake: current Drinks per week: 30 Substance use: current Substance use type: marijuana Other substance usage details: Smokes marijuana 3 times a day. Last use: 04/18/2020 Additional living arrangements comments: Patient lives with his and their 5 children. Gender identity (if verbalized by the patient): Male Spiritual care concerns: No Exam Narrative: Exam Narrative: GENERAL: Well-appearing, well-nourished, and in no acute distress. HEAD: Normocephalic, atraumatic. EYES: PERRLA and EOMI. ENT: Nares clear, no rhinorrhea or epistaxis. Mucous membranes moist. NECK: Supple. CHEST: Clear to auscultation. No respiratory distress. HEART: Regular rate and rhythm. No murmur heard. Normal peripheral pulses. ABDOMEN: Soft, nontender, nondistended, normal active bowel sounds. EXTREMITIES: Normal range of motion. No edema. SKIN: Warm, dry, no rash. NEURO: No focal deficits. Alert and oriented x3. PSYCH: Normal mood and affect. Course Vital Signs Vital signs: Vital Signs Temperature 36.4 C 01/15/21 02:14 Pulse Rate 77 01/15/21 02:14 Respiratory Rate 18 01/15/21 02:14 Blood Pressure 147/69 H 01/15/21 02:14 Pulse Oximetry 100 01/15/21 02:14 Temperature 36.4 C 01/15/21 02:14 Pulse Rate 88 01/15/21 04:11 Respiratory Rate 18 01/15/21 04:11 Blood Pressure 162/92 H 01/15/21 04:11 Pulse Oximetry 99 01/15/21 04:11 Medical Decision Making Vital Signs Vital Signs: Vital Signs Temperature 36.4 C 01/15/21 02:14 Pulse Rate 77 01/15/21 02:14 Respiratory Rate 18 01/15/21 02:14 Blood Pressure 147/69 H 01/15/21 02:14 Pulse Oximetry 100 01/15/21 02:14 Temperature 36.4 C 01/15/21 02:14 Pulse Rate 88 01/15/21 04:11 Respiratory Rate 18 01/15/21 04:11 Blood Pressure 162/92 H 01/15/21 04:11 Pulse Oximetry 99 01/15/21 04:11 Lab Data
[2021-01-15] MEDS: ONDANSETRON INJ 4 MG/2 ML VIAL IV PUSH ×5 (02:42→20:42)
[2021-01-15] MEDS: SODIUM CHLORIDE 0.9% IV 1,000 ML 999 ML IV CONT (02:43)
[2021-01-15] MEDS: MORPHINE SULFATE (*CRX) 4 MG/ML INJ IV PUSH ×7 (02:48→20:42)
[2021-01-15 03:00] LABS: Basophils Absolute Auto 0.1 K/mm3 (0.0-0.1); Basophils Percent Auto 0.7 % (0.2-1.2); Eosinophils Absolute Auto 0.5 K/mm3 (0-0.3); Eosinophils Percent Auto 5.3 % (0-4.4); Hematocrit 44.7 % (42.0-52.0); Hemoglobin 15.6 g/dL (14.0-18.0); Immature Granulocyte Absolute 0.06 K/mm3 (0.00-0.031); Immature Granulocyte Percent A 0.6 % (0-0.5); Lymphocytes Absolute Auto 2.52 K/mm3 (0.9-3.2); Lymphocytes Percent Auto 25.3 % (18.3-44.2); Mean Corpuscular HGB Conc 34.9 g/dl (32-36); Mean Corpuscular Hemoglobin 33.7 pg (26-34); Mean Corpuscular Volume 96.5 fl (80-100); Mean Platelet Volume 10.4 fl (7.4-10.4); Monocytes Absolute Auto 0.9 K/mm3 (0.1-0.6); Monocytes Percent Auto 9.1 % (2.6-8.5); Neutrophils Absolute Auto 5.9 K/mm3 (1.3-6.7); Platelet Count Result 258 k/mm3 (150-375); Red Blood Count 4.63 M/mm3 (4.6-6.20)
[2021-01-15 03:02] LABS: INR 0.9
[2021-01-15 03:03] LABS: Partial Thromboplastin Time 31.7 SECONDS (22.3-36.8)
[2021-01-15 03:04] LABS: Potassium 3.5 mmol/L (3.4-5.0)
[2021-01-15 03:19] LABS: Alanine Aminotransferase 32 U/L (4-50); Albumin Level 4.1 g/dL (3.5-5.1); Alkaline Phosphatase 105 U/L (38-126); Anion Gap 8 mmol/L (8-16); Aspartate Amino Transferase 36 U/L (17-59); Bilirubin,Total 0.3 mg/dL (0.2-1.3); Blood Urea Nitrogen 10 mg/dL (9-20); Calcium 9.5 mg/dL (8.4-10.2); Carbon Dioxide 25 mmol/L (22-30); Chloride 107 mmol/L (98-107); Estimated CRCL calculation 75 ml/min; Estimated Glomerular Filt Rate > 60; Glucose 98 mg/dL (75-110); Sodium 140 mmol/L (137-145)
[2021-01-15 03:30] LABS: Lipase 4084 U/L (23-300)
[2021-01-15 03:45] LABS: Troponin I < 0.012 ng/mL (0.000-0.034)
[2021-01-15 03:51] LABS: Add Urine Microscopic? YES; Appearance Urine Cloudy (Clear); Bacteria Urine Trace /hpf; Bilirubin Urine Negative (Negative); Blood Urine 1+ (Negative); Color Urine Yellow (Yellow); Glucose Urine UA Negative (Negative); Ketones Urine 1+ mg/dL (Negative); Leukocyte Esterase Ur 2+ LEU/UL (Negative); Mucus Urine Rare /lpf; Nitrate Urine Negative (Negative); Protein Urine 1+ mg/dL (Negative); Specific Grav Ur 1.017 (1.001-1.035); Squamous Epithelial Cell Urine Rare /hpf (Few); WBC Urine >75 /hpf
[2021-01-15 04:06] LABS: Troponin I < 0.012 ng/mL (0.000-0.034)
--- NOTE | 2021-01-15 04:18 | PM.IMHP ---
H&P: HPI History of Present Illness Date/Time: 01/15/21 04:18 Chief Complaint: abdominal pain Narrative: Patient is a 50-year-old gentleman who presents the emergency department with chief complaint of epigastric pain. The patient reports he has prior history of pancreatitis and reports this evening he had sudden onset of pain in the epigastric area patient reports has had episodes of nausea and vomiting. he reprots over the past week, he has been having some fever, not recoreded. he was in here with right testicle swelling for a week or so along wwith testicular pain, he is sexually active. no urinary symptoms rpeorted with no uinray frequnecy, urgency or burning sensation. he does reports some discomfrot on right groin area since about a week. he had received antibiotic shot in his buttock and was given two different antiboitcs which he is currently taking. Review of Systems Review of Systems: Narrative: - CONSTITUTIONAL: Denies weight loss, reports some fever and chills. - HEENT: Denies changes in vision and hearing - RESPIRATORY: Denies SOB and cough. - CV: Denies palpitations and CP. - GI: reports upper abdominal pain, nausea, vomiting and denies diarrhea. - : Denies dysuria and urinary frequency. - MSK: Denies myalgia and joint pain. - SKIN: Denies rash and pruritus. - NEUROLOGICAL: Denies headache and syncope. - PSYCHIATRIC: Denies recent changes in mood. Denies anxiety and depression. All systems reviewed & are unremarkable except as noted in HPI and below PMFSH Past Medical History Medical History Alcoholism Tobacco dependence Surgical History Surgical History No pertinent past surgical history Family History Family History Father Lung cancer Heart disease Diabetes mellitus Other Alcoholism Social History Social History Social History: S urrogate decision maker: Rena Santoyo, . Code status: Full code. Smoking packs per day: 2 Smoking cigarettes per day: 40.0 Years smoked: 15 Smoking pack-years: 30.00 Smoking status: Current every day smoker Tobacco type: cigarettes Second hand tobacco smoke exposure: Yes Additional smoking assessment comments: Patient began smoking at age 12, and is now up to 2 packs a day. Alcohol intake: current Drinks per week: 8 Substance use: current Substance use type: marijuana Other substance usage details: Smokes marijuana 3 times a day. Last use: 04/18/2020 Additional living arrangements comments: Patient lives with his and their 5 children. Gender identity (if verbalized by the patient): Male Spiritual care concerns: No Meds Home Medications and Allergies Home Medications Medication Instructions Recorded Confirmed Type ciprofloxacin HCl 500 mg PO Q12H #10 tablet 01/13/21 Rx doxycycline monohydrate 100 mg PO BID #20 cap 01/13/21 Rx tramadol 50 - 75 mg PO Q6H PRN #15 tablet 01/13/21 Rx Allergies Allergy/AdvReac Type Severity Reaction Status Date / Time No Known Allergies Allergy Verified 01/15/21 02:08 Vital Signs Vital Signs - 24 hr 01/15/21 02:14 01/15/21 02:23 01/15/21 04:11 Temperature 97.6 F Pulse Rate 77 83 88 Respiratory Rate 18 26 H 18 Blood Pressure 147/69 H 162/81 H 162/92 H Pulse Oximetry 100 100 99 Exam Narrative: Exam Narrative: GENERAL: The patient is well developed, not in acute distress HEENT: Nonicteric sclerae, PERRLA, EOMI. Oropharynx clear. Moist mucous membranes. Conjunctivae appear well perfused. CHEST: Chest wall is nontender. HEART: Regular rate and rhythm without murmur, rubs, or gallops LUNGS: Clear to auscultation bilaterally. no respiratory distress ABDOMEN: Soft, positive bowel sounds, tender epiga
--- NOTE | 2021-01-15 05:23 | ADMGEN ---
This patient, Robb Santoyo, was admitted to 3 [facility] Surg Room 331-01. Patient/family oriented to hospital policies and general routines including ID bracelet, bed and alarms, visiting hours, pain management, procedures, bathroom and other care routines, personal items, smoking policy, room service/diet, and visiting hours. Information on how to activate the Rapid Response Team has been discussed. Patient/Family are encouraged to report perceived risks to care and to ask questions if they do not understand what they are told or what they should do.
[2021-01-15] MEDS: SODIUM CHLORIDE 0.9% IV 1,000 ML 150 ML IV CONT ×3 (05:58→20:42)
[2021-01-15 08:47] LABS: Troponin I < 0.012 ng/mL (0.000-0.034)
--- NOTE | 2021-01-15 14:48 | PM.IMPN ---
Progress Note: A&P Assessment and Plan (1) Epididymitis: Code(s): N45.1 - Epididymitis Status: Acute Assessment and Plan: Consult urology p is on fluids watch scrotal edema does not worse (2) Elevated blood pressure reading: Code(s): R03.0 - Elevated blood-pressure reading, without diagnosis of hypertension Status: Acute Assessment and Plan: watch Bp, bp was high on admission (3) Alcoholism: Code(s): F10.20 - Alcohol dependence, uncomplicated Status: Acute Assessment and Plan: Adviced to quit watch for DT (4) Acute pancreatitis: Qualifiers: Acute pancreatitis complication: unspecified Pancreatitis type: unspecified pancreatitis type Qualified Code(s): K85.90 - Acute pancreatitis without necrosis or infection, unspecified Code(s): K85.90 - Acute pancreatitis without necrosis or infection, unspecified Status: Acute Assessment and Plan: monitor lipase levels, npo with fluids and pain medications (5) Tobacco dependence: Code(s): F17.200 - Nicotine dependence, unspecified, uncomplicated Status: Acute Assessment and Plan: adviced to quit smoking Subjective Date/time seen: 01/15/21 14:48 Interval history: 50-year-old gentleman who presents the emergency department with chief complaint of epigastric pain. The patient reports he has prior history of pancreatitis and alcoholism Review of Systems Review of Systems: All systems reviewed & are unremarkable except as noted in HPI and below Exam Const: General: cooperative and healthy appearing; No in distress Nutritional Appearance: overweight Orientation/consciousness: oriented to person HENMT: Head: normal to inspection Resp: Effort & Inspection: no respiratory distress Auscultation: no rhonchi and no wheezes Cardio: Rate: regular rate Rhythm: regular rhythm GI: Inspection: normal to inspection GI Palp: No abdominal tenderness, No Guarding due to palpation present (GI) and No Hepatomegaly present Auscultation: normal bowel sounds Neuro: General: oriented to person Objective Data Vital Signs Vital Signs: Vital Signs - 24 hr 01/15/21 02:14 01/15/21 02:23 01/15/21 04:11 Temperature 36.4 C Pulse Rate 77 83 88 Respiratory Rate 18 26 H 18 Blood Pressure 147/69 H 162/81 H 162/92 H Pulse Oximetry 100 100 99 01/15/21 05:15 01/15/21 09:06 01/15/21 14:00 Temperature 36.1 C L 36.4 C Pulse Rate 58 L 78 Respiratory Rate 18 20 Blood Pressure 173/76 H 160/84 H Pulse Oximetry 95 95 100 Intake/Output Intake/Output: Intake & Output 01/12/21 01/13/21 01/14/21 01/15/21 23:59 23:59 23:59 23:59 Intake Total 1999 Balance 1999 Meds/Results Medications: Active Medications Generic Name Dose Route Start Last Admin Trade Name Freq PRN Reason Stop Dose Admin Doxycycline Hyclate 100 mg 01/15/21 09:00 01/15/21 13:02 Doxycycline Hyclate 100 Mg Tablet PO Not Given Q12HR ROSAURA Sodium Chloride 1,000 mls @ 150 mls/hr 01/15/21 04:15 01/15/21 14:28 Normal Saline Iv IV CONT 150 mls/hr .Q6H40M ROSAURA Administration Ceftriaxone Sodium/Dextrose 1 gm in 50 mls @ 100 mls/hr 01/15/21 05:00 01/15/21 05:58 Rocephin 1 Gm/D5w 50 Ml IVPB 100 mls/hr Q24H ROSAURA Administration Morphine Sulfate 4 mg 01/15/21 04:13 01/15/21 14:33 Morphine Sulfate (*Crx) 4 Mg/Ml Inj IV PUSH 4 mg Q2H PRN Administration Pain Rated 7-10 Ondansetron HCl 4 mg 01/15/21 04:13 01/15/21 12:35 Ondansetron Inj 4 Mg/2 Ml Vial IV PUSH 4 mg Q4H PRN Administration Nausea Radiology Results: ITS Impressions Abdomen/Pelvis CT 01/15/21 08:30 IMPRESSION: 1. Findings consistent with acute uncomplicated pancreatitis. 2. Mild to moderate sigmoid diverticulosis. 3. Mildly aneurysmal lower abdominal aorta. 4. Small inguinal hernias. Scrotum Ultrasound 01/15/21 09:14 IMPRESSION: 1. Right-sided epididymitis or
[2021-01-16] MEDS: ONDANSETRON INJ 4 MG/2 ML VIAL IV PUSH ×4 (01:49→20:27)
[2021-01-16] MEDS: MORPHINE SULFATE (*CRX) 4 MG/ML INJ IV PUSH ×7 (01:49→22:56)
[2021-01-16] MEDS: SODIUM CHLORIDE 0.9% IV 1,000 ML 150 ML IV CONT ×3 (03:35→20:23)
[2021-01-16 06:00] VITALS: BP 136/66; PULSE 73; RESP 16; TEMP 37.1; O2SAT 100
[2021-01-16 06:25] LABS: Alanine Aminotransferase 21 U/L (4-50); Albumin Level 3.2 g/dL (3.5-5.1); Alkaline Phosphatase 74 U/L (38-126); Anion Gap 4 mmol/L (8-16); Aspartate Amino Transferase 23 U/L (17-59); Bilirubin,Total 0.3 mg/dL (0.2-1.3); Blood Urea Nitrogen 7 mg/dL (9-20); Calcium 8.1 mg/dL (8.4-10.2); Carbon Dioxide 25 mmol/L (22-30); Chloride 109 mmol/L (98-107); Estimated CRCL calculation 101 ml/min; Estimated Glomerular Filt Rate > 60; Glucose 80 mg/dL (75-110); Lipase 975 U/L (23-300); Potassium 3.8 mmol/L (3.4-5.0); Sodium 138 mmol/L (137-145)
--- NOTE | 2021-01-16 12:22 | WPDURCON ---
Assessment and Plan Assessment and plan (1) Epididymitis: Code(s): N45.1 - Epididymitis Status: Acute Assessment and Plan: Continue Rocephin, would recommend at least 10-14 days of fci antibiotics s/p discharge. Elevate the scrotum, apply ICE PRN and ok to take NSAID's PRN. (2) Hydrocele: Code(s): N43.3 - Hydrocele, unspecified Status: Acute Assessment and Plan: Elevated with scrotal support, will resolve with time. No intervention needed, very slight on exam. (3) Chlamydia trachomatis infection of genitourinary site: Code(s): A56.2 - Chlamydial infection of genitourinary tract, unspecified Status: Acute Assessment and Plan: We discussed avoiding anal and oral intercourse d/t increased risk of infection. His partner also needs to be tested and treated for Chlamydia or recurrent infection is likely. No furthe evaluation needed, will follow up in the office in 2-3 weeks. Urology Consult Note HPI Date Seen: 01/16/21 Requesting Physician: Gomez Senior MD Primary Care Provider: CUSTOM DECORATING CONSULTANT PHYSICIAN Consult Narrative Narrative: Robb Santoyo SR is a 50 year old male who was seen in the ER initially on 01/13/2021 for right testicle pain with swelling. The pain was first noticed on 01/05/2021 when he ran into a kitchen cabinet pull and continued after that. He was discharged home with Ciprofloxacin 10 days BID, #20 and took one day or 2 pills of the Cipro then came back to the ER yesterday for epigastric pain and continued epididymitis. He was admitted for treatment of pancreatitis and is currently on Rocephin. He had a CT scan which showed normal upper tracts, but his Scrotal US reveals right epididymitis and a small right hydrocele. His WBC is 10.0 and creatinine is 0.80. He states that he had anal intercourse with his as well as oral intercourse on the 01/04/2021 and fell asleep and did not urinate after intercourse which he thinks may have caused the infection as this has never happened before. He denies a previous history of UTI's, stones or BPH. He also denies dysuria, hematuria, frequency, urgency, hesitancy, straining or hematospermia. He tried to wear a scrotal support last night but it was too uncomfortable, so he is elevating with an ice pack at this time which is helping the pain. His urine cultures from 01/13/2021 and 01/15/2021 were negative but his Chlamydia blood work came back positive which is likely contributing to his symptoms. Review of Systems Cardiovascular: Cardiovascular: Denies chest pain Respiratory: Respiratory: Reports no additional respiratory complaints Gastrointestinal: Gastrointestinal: Reports abdominal pain, Denies nausea and Denies vomiting Genitourinary: Genitourinary: Denies hematospermia, Denies hematuria, Denies dysuria, Denies flank pain, Reports testicular pain, Denies urinary frequency, Denies urinary hesitancy and Denies urinary urgency [facility] Past Medical History Medical History Alcoholism Tobacco dependence Surgical History Surgical History No pertinent past surgical history Family History Family History Father Lung cancer Heart disease Diabetes mellitus Other Alcoholism Social History Social History Social History: S urrogate decision maker: Rean Santoyo, . Code status: Full code. Smoking packs per day: 2 Smoking cigarettes per day: 40.0 Years smoked: 15 Smoking pack-years: 30.00 Smoking status: Current every day smoker Tobacco type: cigarettes Second hand tobacco smoke exposure: Yes Additional smoking assessment comments: Patient began smoking at age 12, and is now up to 2 packs a day. Alcohol intake: current Drinks per week: 8 Substance use: current Subst
--- NOTE | 2021-01-16 13:30 | PM.IMPN ---
Progress Note: A&P Assessment and Plan (1) Epididymitis: Code(s): N45.1 - Epididymitis Status: Acute Assessment and Plan: Consult urology pt is currently being treated for epididymitis/ UTI/ Chlamydial infection with IV ROCEPHIN (2) Elevated blood pressure reading: Code(s): R03.0 - Elevated blood-pressure reading, without diagnosis of hypertension Status: Acute Assessment and Plan: Bp is better pt is in less pain today. (3) Alcoholism: Code(s): F10.20 - Alcohol dependence, uncomplicated Status: Acute Assessment and Plan: Adviced to quit watch for DT, no signs so far. (4) Acute pancreatitis: Qualifiers: Acute pancreatitis complication: unspecified Pancreatitis type: unspecified pancreatitis type Qualified Code(s): K85.90 - Acute pancreatitis without necrosis or infection, unspecified Code(s): K85.90 - Acute pancreatitis without necrosis or infection, unspecified Status: Acute Assessment and Plan: lipase coming down nice from @4000 to 900- pt can start clear diet. (5) Tobacco dependence: Code(s): F17.200 - Nicotine dependence, unspecified, uncomplicated Status: Acute Assessment and Plan: Adviced to quit smoking Subjective Date/time seen: 01/16/21 13:30 Interval history: 50-year-old gentleman who presents the emergency department with chief complaint of epigastric pain. The patient reports he has prior history of pancreatitis and alcoholism. Pt also has complaints of scrotal swelling. Review of Systems Review of Systems: All systems reviewed & are unremarkable except as noted in HPI and below Exam Const: General: cooperative and healthy appearing; No in distress Nutritional Appearance: overweight Orientation/consciousness: oriented to person HENMT: Head: normal to inspection Resp: Effort & Inspection: no respiratory distress Auscultation: no rhonchi and no wheezes Cardio: Rate: regular rate Rhythm: regular rhythm GI: Inspection: normal to inspection Auscultation: normal bowel sounds : Other: R scrotum enlarged cf left tender to touch no skin surface changes, scrotum enlarged but not red or swollen. Neuro: General: oriented to person Objective Data Vital Signs Vital Signs: Vital Signs - 24 hr 01/15/21 14:00 01/15/21 21:27 01/16/21 06:00 Temperature 36.4 C 36.9 C 37.1 C Pulse Rate 78 77 73 Respiratory Rate 20 16 16 Blood Pressure 160/84 H 139/69 136/66 Pulse Oximetry 100 99 100 Intake/Output Intake/Output: Intake & Output 01/13/21 01/14/21 01/15/21 01/16/21 23:59 23:59 23:59 23:59 Intake Total 3050 2049 Output Total 680 Balance 2370 0 Meds/Results Medications: Active Medications Generic Name Dose Route Start Last Admin Trade Name Freq PRN Reason Stop Dose Admin Chlordiazepoxide HCl 10 mg 01/15/21 15:28 Chlordiazepoxide (*Crx) 10 Mg Capsule PO Q6H PRN Delirium Sodium Chloride 1,000 mls @ 150 mls/hr 01/15/21 04:15 01/16/21 11:07 Normal Saline Iv IV CONT 150 mls/hr .Q6H40M ROSAURA Administration Ceftriaxone Sodium/Dextrose 1 gm in 50 mls @ 100 mls/hr 01/15/21 05:00 01/16/21 05:13 Rocephin 1 Gm/D5w 50 Ml IVPB Infused Q24H ROSAURA Infusion Morphine Sulfate 4 mg 01/15/21 04:13 01/16/21 11:07 Morphine Sulfate (*Crx) 4 Mg/Ml Inj IV PUSH 4 mg Q2H PRN Administration Pain Rated 7-10 Ondansetron HCl 4 mg 01/15/21 04:13 01/16/21 08:10 Ondansetron Inj 4 Mg/2 Ml Vial IV PUSH 4 mg Q4H PRN Administration Nausea Radiology Results: ITS Impressions Abdomen/Pelvis CT 01/15/21 08:30 IMPRESSION: 1. Findings consistent with acute uncomplicated pancreatitis. 2. Mild to moderate sigmoid diverticulosis. 3. Mildly aneurysmal lower abdominal aorta. 4. Small inguinal hernias. Scrotum Ultrasound 01/15/21 09:14 IMPRESSION: 1. Right-sided epididymitis or epididymoorchitis. 2. Moderate r
[2021-01-16 14:00] VITALS: BP 124/77; PULSE 76; RESP 20; TEMP 36.7; O2SAT 100
[2021-01-16] MEDS: NICOTINE (*PBKC) 21 MG PATCH 1 PATCH TRANSDERM (16:04)
[2021-01-16 21:59] VITALS: BP 152/81; PULSE 82; RESP 20; TEMP 36.4; O2SAT 100
[2021-01-17] MEDS: MORPHINE SULFATE (*CRX) 4 MG/ML INJ IV PUSH ×4 (01:27→08:23)
[2021-01-17] MEDS: ONDANSETRON INJ 4 MG/2 ML VIAL IV PUSH ×2 (01:27→06:04)
[2021-01-17] MEDS: SODIUM CHLORIDE 0.9% IV 1,000 ML 150 ML IV CONT ×2 (01:34→08:23)
[2021-01-17 05:59] VITALS: BP 114/69; PULSE 91; RESP 20; TEMP 36.5; O2SAT 98
--- NOTE | 2021-01-17 07:23 | WPDUROPN2 ---
Progress Note: A&P Assessment and Plan (1) Epididymitis: Code(s): N45.1 - Epididymitis Status: Acute Assessment and Plan: When ready for discharge - Doxycycline and Cipro x10 days (for documented Chlamydia infection) (2) Hydrocele: Code(s): N43.3 - Hydrocele, unspecified Status: Acute Assessment and Plan: Elevated with scrotal support, will resolve with time. No intervention needed, very slight on exam. (3) Chlamydia trachomatis infection of genitourinary site: Code(s): A56.2 - Chlamydial infection of genitourinary tract, unspecified Status: Acute Subjective Subjective Date/Time Seen: 01/17/21 07:23 No complaints - voiding well and minimal testicular discomfort Review of Systems Cardiovascular: Cardiovascular: Denies chest pain, Denies lightheadedness, Denies palpitations and Denies dyspnea Respiratory: Respiratory: Denies dyspnea Gastrointestinal: Gastrointestinal: Denies diarrhea, Denies nausea and Denies vomiting Genitourinary: Genitourinary: Denies hematuria and Denies dysuria Endocrine: Endocrine: Denies palpitations Exam Cardio: Rate: regular rate : Scrotum: no ecchymosis, not edematous and Hydrocele present on the right Testes: epididymal induration on the right and epididymal tenderness on the right Extrem: General: no edema Objective Data Vital Signs Vital Signs: Vital Signs - 24 hr 01/16/21 14:00 01/16/21 21:59 01/17/21 05:59 Temperature 98.1 F 97.6 F 97.7 F Pulse Rate 76 82 91 Respiratory Rate 20 20 20 Blood Pressure 124/77 152/81 H 114/69 Pulse Oximetry 100 100 98 Intake/Output Intake/Output: Intake & Output 01/14/21 01/15/21 01/16/21 01/17/21 23:59 23:59 23:59 23:59 Intake Total 3050 3050 1800 Output Total 680 2300 Balance 2370 3050 -500 Meds/Results Medications: Active Medications Generic Name Dose Route Start Last Admin Trade Name Freq PRN Reason Stop Dose Admin Chlordiazepoxide HCl 10 mg 01/15/21 15:28 Chlordiazepoxide (*Crx) 10 Mg Capsule PO Q6H PRN Agitation Sodium Chloride 1,000 mls @ 150 mls/hr 01/15/21 04:15 01/17/21 01:34 Normal Saline Iv IV CONT 150 mls/hr .Q6H40M ROSAURA Administration Ceftriaxone Sodium/Dextrose 1 gm in 50 mls @ 100 mls/hr 01/15/21 05:00 01/17/21 05:58 Rocephin 1 Gm/D5w 50 Ml IVPB Infused Q24H ROSAURA Infusion Morphine Sulfate 4 mg 01/15/21 04:13 01/17/21 06:04 Morphine Sulfate (*Crx) 4 Mg/Ml Inj IV PUSH 4 mg Q2H PRN Administration Pain Rated 7-10 Nicotine 1 patch 01/16/21 15:00 01/16/21 16:04 Nicotine (*Pbkc) 21 Mg Patch TRANSDERM 1 patch QAM ROSAURA Administration Ondansetron HCl 4 mg 01/15/21 04:13 01/17/21 06:04 Ondansetron Inj 4 Mg/2 Ml Vial IV PUSH 4 mg Q4H PRN Administration Nausea Radiology Results: ITS Impressions Abdomen/Pelvis CT 01/15/21 08:30 IMPRESSION: 1. Findings consistent with acute uncomplicated pancreatitis. 2. Mild to moderate sigmoid diverticulosis. 3. Mildly aneurysmal lower abdominal aorta. 4. Small inguinal hernias. Scrotum Ultrasound 01/15/21 09:14 IMPRESSION: 1. Right-sided epididymitis or epididymoorchitis. 2. Moderate right hydrocele.
[2021-01-17] MEDS: NICOTINE (*PBKC) 21 MG PATCH 1 PATCH TRANSDERM (08:25)
[2021-01-17 11:21] LABS: Lipase 114 U/L (23-300)
--- NOTE | 2021-01-17 12:25 | PM.IMPN ---
Progress Note: A&P Assessment and Plan (1) Epididymitis: Code(s): N45.1 - Epididymitis Status: Acute Assessment and Plan: Consult urology pt is currently being treated for epididymitis/ UTI/ Chlamydial infection with IV ROCEPHIN add doxycycline and ciprofloxacin for 10 days pt adviced retesting in 2 weeks time and contact tracing to other sexual partners (2) Elevated blood pressure reading: Code(s): R03.0 - Elevated blood-pressure reading, without diagnosis of hypertension Status: Acute Assessment and Plan: Bp is better pt is in less pain today. (3) Alcoholism: Code(s): F10.20 - Alcohol dependence, uncomplicated Status: Acute Assessment and Plan: Adviced to quit watch for DT, no signs so far. (4) Acute pancreatitis: Qualifiers: Acute pancreatitis complication: unspecified Pancreatitis type: unspecified pancreatitis type Qualified Code(s): K85.90 - Acute pancreatitis without necrosis or infection, unspecified Code(s): K85.90 - Acute pancreatitis without necrosis or infection, unspecified Status: Acute Assessment and Plan: lipase coming down nice advance diet as directed (5) Tobacco dependence: Code(s): F17.200 - Nicotine dependence, unspecified, uncomplicated Status: Acute Assessment and Plan: Adviced to quit smoking, patch prescibed Subjective Date/time seen: 01/17/21 12:25 Interval history: 50-year-old gentleman who presents the emergency department with chief complaint of epigastric pain. The patient reports he has prior history of pancreatitis and alcoholism. Pt also has complaints of scrotal swelling. Found to have epidermitis and chlamydia infection. Pt feels like he is getting better less abdominal pain tolerating clear diet Review of Systems Review of Systems: All systems reviewed & are unremarkable except as noted in HPI and below Exam Narrative: Exam Narrative: GENERAL: The patient is well developed CHEST: Chest wall is nontender. HEART: Regular rate and rhythm without murmur, rubs, or gallops LUNGS: Clear to auscultation bilaterally. no respiratory distress ABDOMEN: Soft, positive bowel sounds, tender epigastric region, no organomegaly. SKIN: No rash, no excessive bruising, petechiae, or purpura. NEUROLOGIC: Cranial nerves II-XII intact, alert and oriented x 3, no gross motor deficits EXTREMITIES: no edema, cyanosis or clubbing Genitals: right scrotal swelling present mildly tender to touch Objective Data Vital Signs Vital Signs: Vital Signs - 24 hr 01/16/21 14:00 01/16/21 21:59 01/17/21 05:59 Temperature 36.7 C 36.4 C 36.5 C Pulse Rate 76 82 91 Respiratory Rate 20 20 20 Blood Pressure 124/77 152/81 H 114/69 Pulse Oximetry 100 100 98 Intake/Output Intake/Output: Intake & Output 01/14/21 01/15/21 01/16/21 01/17/21 23:59 23:59 23:59 23:59 Intake Total 3050 3050 3040 Output Total 680 2300 Balance 2370 3050 740 Meds/Results Medications: Active Medications Generic Name Dose Route Start Last Admin Trade Name Freq PRN Reason Stop Dose Admin Hydrocodone Bitart/Acetaminophen 1 tab 01/17/21 12:03 Hydrocodone/Acetaminophen (*Crx) 5-325 Mg Tablet PO Q8H PRN Pain Rated 4-10 Chlordiazepoxide HCl 10 mg 01/15/21 15:28 Chlordiazepoxide (*Crx) 10 Mg Capsule PO Q6H PRN Agitation Ceftriaxone Sodium/Dextrose 1 gm in 50 mls @ 100 mls/hr 01/15/21 05:00 01/17/21 05:58 Rocephin 1 Gm/D5w 50 Ml IVPB Infused Q24H ROSAURA Infusion Nicotine 1 patch 01/16/21 15:00 01/17/21 08:25 Nicotine (*Pbkc) 21 Mg Patch TRANSDERM 1 patch QAM ROSAURA Administration Ondansetron HCl 4 mg 01/15/21 04:13 01/17/21 06:04 Ondansetron Inj 4 Mg/2 Ml Vial IV PUSH 4 mg Q4H PRN Administration Nausea Radiology Results: ITS Impressions Abdomen/Pelvis CT 01/15/21 08:30 IMPRESSION: 1. Findings consistent with acute uncomplicated pancreat
[2021-01-17 14:00] VITALS: BP 138/58; PULSE 80; RESP 16; TEMP 36.6; O2SAT 100
[2021-01-17] MEDS: CIPROFLOXACIN 500 MG TAB PO (20:41)
[2021-01-17] MEDS: DOXYCYCLINE HYCLATE 100 MG TABLET PO (20:42)
[2021-01-17 22:00] VITALS: BP 144/83; PULSE 80; RESP 18; TEMP 36.1; O2SAT 98
[2021-01-18 05:43] VITALS: BP 138/80; PULSE 71; RESP 18; TEMP 36.4; O2SAT 100
[2021-01-18 08:00] VITALS: PULSE 71; RESP 18; O2SAT 100
[2021-01-18] MEDS: DOXYCYCLINE HYCLATE 100 MG TABLET PO (08:25)
[2021-01-18] MEDS: CIPROFLOXACIN 500 MG TAB PO (08:25)
[2021-01-18] MEDS: NICOTINE (*PBKC) 21 MG PATCH 1 PATCH TRANSDERM (08:26)
--- NOTE | 2021-01-18 09:01 | PM.DS ---
DS: Admitting Diagnosis Admitting Diagnosis Admitting Diagnosis: Abdominal pain DS: Discharge Diagnosis Discharge Diagnosis (1) Epididymitis: Code(s): N45.1 - Epididymitis Status: Acute Assessment and Plan: Consult urology pt is currently being treated for epididymitis/ UTI/ Chlamydial infection with IV ROCEPHIN pt to continue on doxycycline and ciprofloxacin for 10 days pt advised retesting in 2 weeks time and contact tracing to other sexual partners Pt seen by urology offered ice and scrotal support no need to drain scrotum. pt can take ibuprofen for pain control. (2) Elevated blood pressure reading: Code(s): R03.0 - Elevated blood-pressure reading, without diagnosis of hypertension Status: Acute Assessment and Plan: Bp is better pt is in less pain today. BP is 138/80 (3) Alcoholism: Code(s): F10.20 - Alcohol dependence, uncomplicated Status: Acute Assessment and Plan: Advised to quit alcohol, no signs of DT in the hospital. (4) Acute pancreatitis: Qualifiers: Acute pancreatitis complication: unspecified Pancreatitis type: unspecified pancreatitis type Qualified Code(s): K85.90 - Acute pancreatitis without necrosis or infection, unspecified Code(s): K85.90 - Acute pancreatitis without necrosis or infection, unspecified Status: Acute Assessment and Plan: Lipase coming down, pt is tolerating regular diet (5) Tobacco dependence: Code(s): F17.200 - Nicotine dependence, unspecified, uncomplicated Status: Acute Assessment and Plan: Adviced to quit smoking, patch prescibed DS: Summary Hospital Course Hospital Course: 50-year-old gentleman who presents the emergency department with chief complaint of epigastric pain. The patient reports he has prior history of pancreatitis and alcoholism. Pt also has complaints of scrotal swelling. Found to have epididymitis and chlamydia infection. Pt feels like he is getting better, lipase is normal, pt is tolerating regular diet now and is ready to go home. Time Spent with Patient Time attestation: Total time spent providing and/or coordinating discharge services:40 minutes on day of dischrage Exam Narrative: Exam Narrative: GENERAL: The patient is well developed CHEST: Chest wall is nontender. HEART: Regular rate and rhythm without murmur, rubs, or gallops LUNGS: Clear to auscultation bilaterally. no respiratory distress ABDOMEN: Soft, positive bowel sounds, tender epigastric region, no organomegaly. SKIN: No rash, no excessive bruising, petechiae, or purpura. NEUROLOGIC: Cranial nerves II-XII intact, alert and oriented x 3, no gross motor deficits EXTREMITIES: no edema, cyanosis or clubbing Genitals: right scrotal swelling present mildly tender to touch DS: Data Data Completed and Pending Labs on day of discharge: Labs from last 24 hours 01/17/21 11:05 Lipase 114 Discharge Plan Discharge Attending physician on discharge: Mary Haines Consulting providers: Marvin Holloway ; Kelly Moser Discharging Clinician: Mary Haines Anticipated Discharge Date/Time: 01/18/21 08:56 Patient Disposition: Home, Self-Care Activity: as tolerated Diet: regular Discharge Instructions: Urology Instructions: Elevate the scrotum with a scrotal support to improve swelling, apply ICe to the scrotum as needed for pain and inflammation. Ok to take NSAID's for pain and inflammation. Call the office to schedule a follow up appointment in 2-3 weeks. Repeat CHLAMYDIA testing in 2 weeks time, contact tracing is advised Patient Instructions: Antibiotic Form, How to Stop Smoking (DC), Pancreatitis (DC) Stand Alone Forms: General Discharge Information Follow-up/Referrals: Kelly Moser MD [Physician] - Discharge Medications: Continued doxycycline monohydrate 100 mg capsule 100 mg PO BID Qty: 20 RF: 0 ciprofloxacin HCl 500 mg
[2021-01-18 09:21] LABS: Lipase 111 U/L (23-300)
== END 2021-01-18 11:25 | disposition home or self-care (01) | DRG 282 ==
LOC: ANHED 04:17 → ANH3MEDSUR 04:52
PROVIDERS: Admitting Provider Internal Medicine; Emergency Provider Emergency Medicine; Visit Provider Family Medicine
DX: K85.90 Acute pancreatitis without necrosis or infection, unspecified (principal); N45.1 Epididymitis; A56.19 Other chlamydial genitourinary infection; N43.3 Hydrocele, unspecified; N39.0 Urinary tract infection, site not specified; F10.20 Alcohol dependence, uncomplicated; F17.210 Nicotine dependence, cigarettes, uncomplicated; R03.0 Elevated blood-pressure reading, without diagnosis of hypertension; Z79.899 Other long term (current) drug therapy
CPT/HCPCS: 36415; 74177; 76870; 80053; 81001; 83605; 83690; 84484; 85025; 85610; 85730; 87086; 93005; 93976; 96361; 96365; 96375; 96376; 99285; A9270; G0378; G0379; J0696; J2270; J2405; J7030; Q9967

== ENCOUNTER 2021-07-30 19:31 | Emergency (ER) | payer OTHER, SELFPAY ==
[2021-07-30 19:39] VITALS: BP 150/78; PULSE 92; RESP 16; TEMP 36; O2SAT 98
--- NOTE | 2021-07-30 19:50 | ED.DENTAL ---
HPI - Dental/Oral General Chief complaint: Dental/Oral Stated complaint: tooth pain Time Seen by Provider: 07/30/21 19:50 Source: patient Mode of arrival: ambulatory Limitations: no limitations History of Present Illness HPI Narrative: Robb Santoyo is a 51 yo male with no PMH [facility] that started last night, she has lower right molar pain and molar 31. Does not have a dentist. Daily smoker daily drinker-states that Tylenol area and Advil is not helping with the pain Related Data Home Medications Medication Instructions Recorded Confirmed No Home Medications 07/30/21 07/30/21 Allergies Allergy/AdvReac Type Severity Reaction Status Date / Time No Known Allergies Allergy Verified 07/30/21 19:53 Review of Systems Review of Systems: CONSTITUTIONAL: Denies fever, chills, sweats. EYES: Denies visual changes, redness, discharge. ENT: Denies rhinorrhea, congestion, sore throat, otalgia. Dental pain right lower molar tooth #31 CARDIOVASCULAR: Denies chest pain, palpitations, edema. RESPIRATORY: Denies dyspnea, wheezing, cough GASTROINTESTINAL: Denies abdominal pain, nausea, vomiting, diarrhea. GENITOURINARY: Denies dysuria, hematuria, abnormal discharge SKIN: Denies rash or itching. NEUROLOGIC: Denies numbness, or focal weakness. PSYCHIATRIC: Denies anxiety or depression. [facility] Past Medical History Medical History Alcoholism Tobacco dependence Surgical History Surgical History No pertinent past surgical history Family History Family History Father Lung cancer Heart disease Diabetes mellitus Other Alcoholism Social History Social History Social History: S urrogate decision maker: Rena Santoyo, . Code status: Full code. Smoking packs per day: 2 Smoking cigarettes per day: 40.0 Years smoked: 15 Smoking pack-years: 30.00 Smoking status: Current every day smoker Tobacco type: cigarettes Second hand tobacco smoke exposure: Yes Additional smoking assessment comments: Patient began smoking at age 12, and is now up to 2 packs a day. Alcohol intake: current Drinks per week: 8 Substance use: current Substance use type: marijuana Other substance usage details: Smokes marijuana 3 times a day. Last use: 04/18/2020 Additional living arrangements comments: Patient lives with his and their 5 children. Gender identity (if verbalized by the patient): Male Spiritual care concerns: No Comments At time of signature, I agree with nursing past medical, surgical, social and family history. There is no relevant family history pertinent to the presenting complaint. Blood pressure is elevated at this visit due to pain Exam Narrative: GENERAL: This is a well-nourished, well-developed patient, in mild distress. HEAD: normocephalic, atraumatic. EYES: Sclera clear/white. Vision is grossly intact. EARS: External ears normal,. Hearing grossly intact. NOSE: External nose normal without nasal discharge, nares without redness, no rhinorrhea. THROAT: Mucous membranes moist, posterior pharynx pink has swelling on the right tooth along the gumline of tooth 31 NECK: Neck supple, CARDIOVASCULAR: Regular rate and rhythm without murmurs, gallops, or rubs. RESPIRATORY: Clear to auscultation. Breath sounds equal bilaterally. No wheezes, rales, or rhonchi. GASTROINTESTINAL: Abdomen soft, SKIN: warm, intact with no suspicious lesions or rash, good texture and turgor. NEURO: awake, alert, and oriented to person, place and time. There were no obvious focal neurologic abnormalities. Steady gait EXTREMITIES: Normal range of motion. BACK: Nontender without deformity Course Course Emergency Course: Patient comes to [facility] with compla
== END 2021-07-30 20:03 | disposition home or self-care (01) ==
PROVIDERS: Emergency Provider Nurse Practitioner
DX: K08.89 Other specified disorders of teeth and supporting structures (principal); F17.210 Nicotine dependence, cigarettes, uncomplicated; F12.90 Cannabis use, unspecified, uncomplicated
CPT/HCPCS: 99213; G0463

== ENCOUNTER 2022-02-13 18:17 | Emergency (ER) | payer OTHER, SELFPAY ==
[2022-02-13 18:25] VITALS: BP 145/91; PULSE 81; RESP 16; TEMP 36.4; O2SAT 100
--- NOTE | 2022-02-13 18:30 | ED.DENTAL ---
HPI - Dental/Oral General Chief complaint: Dental/Oral Stated complaint: Tooth Pain Time Seen by Provider: 02/13/22 18:30 Source: patient, RN notes reviewed and old records reviewed Mode of arrival: ambulatory Limitations: no limitations History of Present Illness HPI Narrative: 51-year-old male presents to the [facility] with complaints of dental pain for 2 days.pain to the left upper molars. Decay noted. Surrounding erythema noted. Has taken Tylenol and Advil. Has been applying ice. Poor dentition and has not seen a dentist in several years MD Complaint: tooth pain Teeth map: 1. Onset (ago): day(s) (2) Related Data Allergies Allergy/AdvReac Type Severity Reaction Status Date / Time No Known Allergies Allergy Verified 07/30/21 19:53 Review of Systems Review of Systems: All systems reviewed & are unremarkable except as noted in HPI and below Constitutional: Constitutional: Reports no additional constitutional complaints, Denies chills and Denies fever(s) Eyes: Eyes: Reports no additional eye complaints ENT: Reports as per HPI Comments: Dental pain, left upper molar Cardiovascular: Cardiovascular: Reports no additional cardiovascular complaints, Denies chest pain and Denies dyspnea Respiratory: Respiratory: Reports no additional respiratory complaints, Denies cough and Denies dyspnea Musculoskeletal: Musculoskeletal: Reports no additional musculoskeletal complaints Integumentary/Breasts: Skin/Breast: Reports system reviewed and no additional complaints, except as docu Neurologic: Reports system reviewed and no additional complaints, except as documented Psychiatric: Psychiatric: Reports no additional psychiatric complaints Allergic/Immunologic: Allergic/Immunologic: Reports no additional allergic/immunologic complaints [facility] Past Medical History Medical History Alcoholism Tobacco dependence Surgical History Surgical History No pertinent past surgical history Family History Family History Father Lung cancer Heart disease Diabetes mellitus Other Alcoholism Social History Social History Social History: S urrogate decision maker: Rena Santoyo, . Code status: Full code. Smoking packs per day: 2 Smoking cigarettes per day: 40.0 Years smoked: 15 Smoking pack-years: 30.00 Smoking status: Current every day smoker Tobacco type: cigarettes Second hand tobacco smoke exposure: Yes Additional smoking assessment comments: Patient began smoking at age 12, and is now up to 2 packs a day. Alcohol intake: current Drinks per week: 8 Substance use: current Substance use type: marijuana Other substance usage details: Smokes marijuana 3 times a day. Last use: 04/18/2020 Additional living arrangements comments: Patient lives with his and their 5 children. Gender identity (if verbalized by the patient): Male Spiritual care concerns: No Comments At the time of my signature, I reviewed and agree with the nursing past medical, surgical, social, and family history. There is no relevant family history pertinent to the patient complaint. Exam Const: General: healthy appearing, no acute distress and alert Nutritional Appearance: well nourished Orientation/consciousness: patient oriented x3 Limitations: no limitations HENMT: Head: normal to inspection Ears: external ears normal, TM's normal bilaterally and EAC's normal General nose exam: Normal external nose present and Normal nasal mucous membranes and turbinates present Face and sinus: normal facial exam Mouth: Yes Normal oral and palatal mucosa present Teeth and gingiva: poor dentition Teeth image: 1. Fractured decayed tooth with surrounding erythema of the gingiva Throat: posterio
== END 2022-02-13 18:40 | disposition home or self-care (01) ==
PROVIDERS: Emergency Provider Nurse Practitioner
DX: K02.9 Dental caries, unspecified (principal); F17.210 Nicotine dependence, cigarettes, uncomplicated
CPT/HCPCS: 99213; G0463

== ENCOUNTER 2022-05-05 19:14 | Emergency (ER) | payer OTHER, SELFPAY ==
--- NOTE | 2022-05-05 19:16 | ED.SKABFB ---
HPI - Skin/Abscess/Foreign Bdy General Chief complaint: Wound/Laceration Stated complaint: tick bite Time Seen by Provider: 05/05/22 19:44 Source: patient and RN notes reviewed Mode of arrival: ambulatory Limitations: no limitations History of Present Illness HPI narrative: 52-year-old male presents with concern for possible tick bite. He reports noticing an area on the back of his right upper arm that was tender. He then looked at it and saw a red spots with a brown center. He denies pulling a tick off of his skin. He denies any body aches, chills, fever, sweats, joint pain. He denies any drainage from the area. MD complaint: insect bite/sting Related Data Allergies Allergy/AdvReac Type Severity Reaction Status Date / Time No Known Allergies Allergy Verified 07/30/21 19:53 Review of Systems Review of Systems: CONSTITUTIONAL: Denies malaise, chills, sweats, or fever. EYES: Denies redness, or discharge. ENT: Denies rhinorrhea, congestion, swollen lips, swollen tongue CARDIOVASCULAR: Denies chest pain, palpitations, or edema. RESPIRATORY: Denies cough or dyspnea. GASTROINTESTINAL: Denies abdominal pain, nausea, vomiting SKIN: Reports tender, red rash-like area on the back of his right arm with a brown center MUSCULOSKELETAL: Denies joint pain or myalgia. NEUROLOGIC: Denies headache. All systems reviewed & are unremarkable except as noted in HPI and below PMFSH Past Medical History Medical History Alcoholism Tobacco dependence Surgical History Surgical History No pertinent past surgical history Family History Family History Father Lung cancer Heart disease Diabetes mellitus Other Alcoholism Social History Social History Social History: S urrogate decision maker: Rena Santoyo, . Code status: Full code. Smoking packs per day: 2 Smoking cigarettes per day: 40.0 Years smoked: 15 Smoking pack-years: 30.00 Smoking status: Current every day smoker Tobacco type: cigarettes Second hand tobacco smoke exposure: Yes Additional smoking assessment comments: Patient began smoking at age 12, and is now up to 2 packs a day. Alcohol intake: current Drinks per week: 8 Substance use: current Substance use type: marijuana Other substance usage details: Smokes marijuana 3 times a day. Last use: 04/18/2020 Additional living arrangements comments: Patient lives with his and their 5 children. Gender identity (if verbalized by the patient): Male Spiritual care concerns: No Comments At time of signature, agree with nursing past medical, surgical, social and family history. There is no relevant family history pertinent to the presenting complaint Exam Narrative: GENERAL: Well-appearing, well-nourished, and in no acute distress. HEAD: Normocephalic, atraumatic. EYES: PERRLA, conjunctivae clear, and EOMI. ENT: Mucous membranes moist. Oropharynx without edema, erythema or lesions. NECK: Supple. No lymphadenopathy CHEST: Clear to auscultation. No respiratory distress. HEART: Regular rate and rhythm. SKIN: Warm, dry. Approximately 9 cm area of blotchy erythema with a dark center, slightly tender to touch without fluctuation noted to the right posterior arm, no edema, induration noted. No pain beyond proportion NEURO: Alert and oriented x3. PSYCH: Normal mood and affect Course Course Emergency Course: Patient is aware of diagnosis, understands and agrees to treatment plan. Anticipatory guidance given. Patient agrees to follow-up as directed and is aware of reasons to seek care at the emergency department. Portions of this record may have been created with voice recognition software Level of Care: Express Care Visit Vital Signs Vital signs: Reviewed. MDM - S
[2022-05-05 19:22] VITALS: BP 124/80; PULSE 78; RESP 16; TEMP 35.9; O2SAT 99
== END 2022-05-05 19:57 | disposition home or self-care (01) ==
PROVIDERS: Emergency Provider Nurse Practitioner
DX: S40.861A Insect bite (nonvenomous) of right upper arm, initial encounter (principal); W57.XXXA Bitten or stung by nonvenomous insect and other nonvenomous arthropods, initial encounter; F17.210 Nicotine dependence, cigarettes, uncomplicated
CPT/HCPCS: 99213; G0463

== ENCOUNTER 2022-06-11 19:07 | Emergency (ER) | payer OTHER, SELFPAY ==
[2022-06-11 19:15] VITALS: BP 138/69; PULSE 86; RESP 18; TEMP 36.3; O2SAT 100
--- NOTE | 2022-06-11 20:09 | ED.GENADULT ---
HPI - General Adult General Chief complaint: Dental/Oral Stated complaint: Tooth Pain Lt Side Source: patient History of Present Illness HPI narrative: This is a 52-year-old male who presented to urgent care with complaints of left jaw pain and swelling. According to patient for a couple of days he developed swelling and pain to the left upper jaw. Patient notes that he felt something burst in his mouth with a foul taste afterwards he no longer experience pain. Patient did take ibuprofen and Tylenol at home to relieve his pain. He also notes he has several cavities but the put with cavities not the one is giving him pain. The patient denies SOB, CP, palpitation, extremity numbness, lightheadedness, dizziness, constipation, diarrhea, chills, or fever. Related Data Allergies Allergy/AdvReac Type Severity Reaction Status Date / Time No Known Allergies Allergy Verified 06/11/22 19:25 Review of Systems Review of Systems: A 14 organ system Review of Systems was performed and pertinent positives included in the HPI, otherwise remaining ROS is negative. [facility] Past Medical History Medical History Alcoholism Tobacco dependence Surgical History Surgical History No pertinent past surgical history Family History Family History Father Lung cancer Heart disease Diabetes mellitus Other Alcoholism Social History Social History Social History: S urrogate decision maker: Rena Santoyo, . Code status: Full code. Smoking packs per day: 2 Smoking cigarettes per day: 40.0 Years smoked: 15 Smoking pack-years: 30.00 Smoking status: Current every day smoker Tobacco type: cigarettes Second hand tobacco smoke exposure: Yes Additional smoking assessment comments: Patient began smoking at age 12, and is now up to 2 packs a day. Alcohol intake: current Drinks per week: 8 Substance use: current Substance use type: marijuana Other substance usage details: Smokes marijuana 3 times a day. Last use: 04/18/2020 Additional living arrangements comments: Patient lives with his and their 5 children. Gender identity (if verbalized by the patient): Male Spiritual care concerns: No Exam Narrative: GENERAL: This is a well-nourished, well-developed patient, in no apparent distress. HEAD: normocephalic, atraumatic. EYES: PERRL. Sclera clear/white. Vision is grossly intact. EARS: External ears normal, auditory canals clear and without drainage, TMs normal without perforation. Hearing grossly intact. NOSE: External nose normal with no obvious nasal discharge, nares without redness, no rhinorrhea. THROAT: Mucous membranes moist, posterior pharynx clear. Tooth 14, 15 and 16 with cavities and swollen gums NECK: Neck supple, non-tender without lymphadenopathy, masses or thyromegaly. CARDIOVASCULAR: Regular rate and rhythm without murmurs, gallops, or rubs. RESPIRATORY: Clear to auscultation. Breath sounds equal bilaterally. No wheezes, rales, or rhonchi. GASTROINTESTINAL: Abdomen soft, non-tender, nondistended. Bowel sounds are active. No hepato-splenomegaly, or palpable masses. No guarding. SKIN: warm, intact with no suspicious lesions or rash, good texture and turgor. NEURO: awake, alert, and oriented to person, place and time. There were no obvious focal neurologic abnormalities. EXTREMITIES: Normal range of motion. No edema. No calf tenderness. Course Course Emergency Course: Patient will be given Augmentin 3 times daily x10 days and ibuprofen instructed to follow-up with a dentist Level of Care: Express Care Visit Vital Signs Vital signs: Vital Signs Temperature 97.3 F L 06/11/22 19:15 Pulse Rate 86 06/11/22 19:15 Respiratory Rate 18 06/11/22 19:15 Blood Pressure 138/
== END 2022-06-11 20:10 | disposition home or self-care (01) ==
PROVIDERS: Emergency Provider Nurse Practitioner
DX: K04.7 Periapical abscess without sinus (principal); K02.9 Dental caries, unspecified; F17.210 Nicotine dependence, cigarettes, uncomplicated; F12.90 Cannabis use, unspecified, uncomplicated
CPT/HCPCS: 99213; G0463

== ENCOUNTER 2022-07-20 14:18 | Outpatient (CLI) | payer OTHER, SELFPAY ==
--- NOTE | ~2022-07-20 | US_ITS ---
EXAMINATION: US art doppler w press LE BI DATE: 07/20/2022 15:59 INDICATION: Claudication. TECHNIQUE: Segmental pressures and plethysmographic and Doppler waveforms of the brachial and lower e xtremity arteries were obtained. COMPARISON: CT abdomen pelvis 01/15/2021 FINDINGS: Right and left brachial artery pressures of 109 mm Hg and 111 mm Hg, respectively, are concordant (no rmal difference <= 30 mmHg). The right high-thigh pressure index is 1.08 (normal > 1.2). The right ankle-brachial index (ZACH) is 0 .67 (normal >= 0.9-1.0). The right great toe-brachial index (TBI) is 0.93 (normal >= 0.65). Arterial Doppler waveforms are biphasic from common femoral artery to the ankle. The left high-thigh pressure index is 0.60. The left ZACH is 0.67. The left TBI is 1.34. Arterial Dopp ler waveforms are poorly detected in left lower limb. There is no detectable waveform in superficial femoral artery. IMPRESSION: 1. Moderately decreased bilateral ABIs, consistent with arterial occlusive disease. 2. Poorly detected arterial waveforms in left lower limb. No detectable waveform in left superficial femoral artery. Reviewed, dictated and finalized at location A. L STRETCHER IMPRESSION: 1. Moderately decreased bilateral ABIs, consistent with arterial occlusive dise ase. 2. Poorly detected arterial waveforms in left lower limb. No detectable wavefor m in left superficial femoral artery.
--- NOTE | ~2022-07-20 | US_ITS ---
EXAMINATION: US venous doppler [facility] DATE: 07/20/2022 15:59 INDICATION: DAVIN CALF PAIN . TECHNIQUE: Grayscale images without and with compression and Doppler images of the bilateral lower ex tremity veins were obtained. COMPARISON: None FINDINGS: The right common femoral vein, profunda (deep) femoral vein, femoral vein, popliteal vein, peroneal v ein, posterior tibial veins, and greater saphenous vein are patent. The left common femoral vein, profunda femoral vein, femoral vein, popliteal vein, peroneal vein, pos terior tibial veins, and greater saphenous vein are patent. IMPRESSION: 1. Patent bilateral lower extremity veins. No evidence of deep venous thrombosis. Reviewed, dictated and finalized at location K. OR FINANCIAL CONSULTANT IMPRESSION: 1. Patent bilateral lower extremity veins. No evidence of deep venous thrombos is.
== END 2022-07-20 14:19 | disposition home or self-care (01) ==
PROVIDERS: Visit Provider Physician Assistant
DX: M79.662 Pain in left lower leg (principal)
CPT/HCPCS: 93923; 93970

== ENCOUNTER 2022-07-20 17:01 | Emergency (ER) | payer OTHER, SELFPAY ==
--- NOTE | ~2022-07-20 | CT_ITS ---
EXAMINATION: CTA LE DATE: 07/20/2022 19:44 INDICATION: TECHNIQUE: Computed tomographic angiography (CTA) of the left lower extremity was performed with 150 mL Omnipaque-350 intravenous contrast. Automated exposure control and iterative reconstruction techni que were employed. The dose-length product was 657.03 mGy-cm. Volume rendered 3D-reconstructions of t he arteries were created by the technologist on a separate workstation. COMPARISON: Ultrasound arterial Doppler, same date. CT abdomen and pelvis 01/15/2021. FINDINGS: PELVIC VASCULATURE: Calcified and noncalcified atherosclerotic plaque in the bilateral internal iliac arteries. Mild sten osis in the right common iliac artery. Mild stenosis in the left external iliac artery. Severe stenos es at the bilateral internal iliac artery origins. Occlusion or near occlusion in the mid left hr internship al iliac artery. LEFT LOWER EXTREMITY VASCULATURE: Occlusion of the superficial femoral artery just distal to the takeoff of the profundus. Reconstituti on of flow just proximal to the knee joint. There is slow flow in the distal leg arteries. Calcified plaque with preserved flow at the trifurcation. Flow is present in the posterior tibial and anterior tibial arteries below the level of the ankle. ADDITIONAL FINDINGS: Enlarged prostate. Diverticulosis. Small bilateral uncomplicated appearing fat-containing inguinal he rnias IMPRESSION: 1. Occlusion of the left superficial femoral artery just distal to the takeoff of the profundus, wit h reconstitution just above the level of the knee. Slow but preserved 2 vessel flow below the level o f the ankle. 2. Severe bilateral internal iliac artery origin stenoses. 3. Occlusion or near occlusion of the mid and distal left internal iliac artery. Reviewed, dictated and finalized at location K. F TRAINER IMPRESSION: 1. Occlusion of the left superficial femoral artery just distal to the takeoff of the profundus, with reconstitution just above the level of the knee. Slow b ut preserved 2 vessel flow below the level of the ankle. 2. Severe bilateral internal iliac artery origin stenoses. 3. Occlusion or near occlusion of the mid and distal left internal iliac artery .
[2022-07-20 17:04] VITALS: BP 143/67; PULSE 78; RESP 20; TEMP 36.4; O2SAT 100
--- NOTE | 2022-07-20 17:15 | ED.EXTPRO ---
HPI - Extremity Problem General Chief complaint: Extremity Problem,Nontraumatic Stated complaint: LEFT DVT? FROM RADIOLOGY Time Seen by Provider: 07/20/22 17:10 History of Present Illness HPI Narrative: Patient is a 52-year-old male here for evaluation of numbness and tingling in his left foot for the past month with claudication and rest pain developing over the past 2 weeks. Patient saw his PCP 3 days ago who encouraged patient to go to the emergency department but patient declined. ZACH was ordered for today, and was sent here directly from radiology due to undetectable arterial waveforms in his left SFA. He is a smoker and has a history of hypertension. Denies history of PVD and has never seen a vascular surgeon. Related Data Allergies Allergy/AdvReac Type Severity Reaction Status Date / Time No Known Allergies Allergy Verified 06/11/22 19:25 Review of Systems Review of Systems: Gen: Denies fevers or chills Eyes: Denies eye pain or visual change ENT: Denies congestion Respiratory: Denies shortness of breath or cough CV: Denies chest pain or palpitations GI: Denies abdominal pain nausea, emesis or diarrhea : denies burning, urgency, frequency or hematuria Musculoskeletal: Reports numbness and tingling in his left foot. Denies back pain or muscle pain Neuro: Denies numbness, tingling, weakness or focal weakness Skin: Denies rash Except as documented, all other systems reviewed and negative [facility] Past Medical History Medical History Alcoholism Tobacco dependence Surgical History Surgical History No pertinent past surgical history Family History Family History Father Lung cancer Heart disease Diabetes mellitus Other Alcoholism Social History Social History Social History: S urrogate decision maker: Rena Santoyo, . Code status: Full code. Smoking packs per day: 2 Smoking cigarettes per day: 40.0 Years smoked: 15 Smoking pack-years: 30.00 Smoking status: Current every day smoker Tobacco type: cigarettes Second hand tobacco smoke exposure: Yes Additional smoking assessment comments: Patient began smoking at age 12, and is now up to 2 packs a day. Alcohol intake: current Drinks per week: 8 Substance use: current Substance use type: marijuana Other substance usage details: Smokes marijuana 3 times a day. Last use: 04/18/2020 Additional living arrangements comments: Patient lives with his and their 5 children. Gender identity (if verbalized by the patient): Male Spiritual care concerns: No Exam Narrative: APPEARANCE: Well appearing, no pain in distress, well-nourished. Head: Normocephalic and atraumatic. EYES: PERRLA/EOMI, conjunctivae clear NOSE: No nasal drainage EARS: External ear normal in appearance THROAT: Oropharynx is clear. Mucous membranes are moist. NECK: Supple. No adenopathy, no masses. RESPIRATORY: Airway patent, respirations nonlabored. Clear to auscultation bilaterally, no rales, rhonchi, wheezing. CARDIOVASCULAR: Monophasic flow to bilateral DPs. No discernible Doppler signal detected to bilateral PTs. Regular rate and rhythm without murmurs, rubs, or gallops. ABDOMINAL: Normoactive bowel sounds. Soft, nontender, nondistended. No rebound tenderness or guarding. MUSCULOSKELETAL: Sensation intact throughout left foot aside from toes 1 and 2. Full range of motion in bilateral feet and toes. Toenails are blue but feet are warm. NEURO: Normal speech. No focal neurologic deficits. SKIN: Skin is warm and dry. No rashes. PSYCHIATRIC: Normal affect/mood. Course Consultations Consultation #1: Spoke with Dr. Clemens, vascular surgeon at [facility], reassuring that patient's foot is pink and warm with reconstitution of jazlyn
[2022-07-20 17:40] LABS: Basophils Absolute Auto 0.1 K/mm3 (0.0-0.1); Basophils Percent Auto 1.1 % (0.2-1.2); Eosinophils Absolute Auto 1.4 K/mm3 (0-0.3); Eosinophils Percent Auto 15.5 % (0-4.4); Hematocrit 47.8 % (42.0-52.0); Hemoglobin 16.2 g/dL (14.0-18.0); Immature Granulocyte Absolute 0.04 K/mm3 (0.00-0.031); Immature Granulocyte Percent A 0.5 % (0-0.5); Lymphocytes Absolute Auto 3.23 K/mm3 (0.9-3.2); Lymphocytes Percent Auto 36.4 % (18.3-44.2); Mean Corpuscular HGB Conc 33.9 g/dl (32-36); Mean Corpuscular Hemoglobin 32.5 pg (26-34); Mean Platelet Volume 10.5 fl (7.4-10.4); Monocytes Absolute Auto 0.6 K/mm3 (0.1-0.6); Monocytes Percent Auto 6.5 % (2.6-8.5); Neutrophils Absolute Auto 3.6 K/mm3 (1.3-6.7); Platelet Count Result 205 k/mm3 (150-375); Red Blood Count 4.98 M/mm3 (4.6-6.20); Red Cell Distribution Width 13.5 % (11.5-14.5); White Blood Count 8.9 K/mm3 (4.5-10.0)
[2022-07-20 17:52] LABS: Prothrombin Time 12.4 Seconds (11.1-14.7)
[2022-07-20 17:53] LABS: Partial Thromboplastin Time 30.6 SECONDS (22.3-36.8)
[2022-07-20] MEDS: HEPARIN SODIUM 5,000 UNITS/ML VIAL 6500 UNITS IV PUSH (18:22)
[2022-07-20] MEDS: HEPARIN SOD/D5W 100 UNITS/ML 25,000 UNITS/250 ML BAG 15 UNITS IV CONT (18:23)
[2022-07-20 18:26] VITALS: BP 154/93; PULSE 75; RESP 13
[2022-07-20 19:08] LABS: Alanine Aminotransferase 28 U/L (6-50); Albumin Level 4.4 g/dL (3.5-5.1); Alkaline Phosphatase 86 U/L (38-126); Anion Gap 10 mmol/L (8-16); Aspartate Amino Transferase 25 U/L (17-59); Bilirubin,Total 0.3 mg/dL (0.2-1.3); Blood Urea Nitrogen 17 mg/dL (9-20); Calcium 9.3 mg/dL (8.4-10.2); Carbon Dioxide 28 mmol/L (22-30); Chloride 102 mmol/L (98-107); Estimated CRCL calculation 89 ml/min; Estimated Glomerular Filt Rate > 60; Glucose 99 mg/dL (65-110); Potassium 4.5 mmol/L (3.4-5.0); Sodium 140 mmol/L (137-145)
[2022-07-20 21:27] VITALS: BP 138/88; PULSE 88; RESP 18; O2SAT 99
--- NOTE | 2022-09-03 12:36 | PC.NURSE ---
LATE ENTRY This note is being entered to document information to the patient's record. The following information was omitted on [07/20/22], by [Rosalind Boles RN]. Heparin infusion discontinued at 2100.
== END 2022-07-20 21:27 | disposition home or self-care (01) ==
PROVIDERS: Physician Assistant; Emergency Provider Family Medicine; PCP Physician Assistant
DX: I74.3 Embolism and thrombosis of arteries of the lower extremities (principal); I74.5 Embolism and thrombosis of iliac artery; I10 Essential (primary) hypertension; F17.210 Nicotine dependence, cigarettes, uncomplicated
CPT/HCPCS: 36415; 73706; 80053; 85025; 85610; 85730; 96365; 96366; 99284; J1644; Q9967

== ENCOUNTER 2022-08-16 20:50 | Emergency (ER) | payer OTHER, SELFPAY ==
[2022-08-16] VITALS (7 sets, daily range): BP systolic 98–121; BP diastolic 56–72; PULSE 74–89; RESP 12–15; TEMP 36.3; O2SAT 100
--- NOTE | ~2022-08-16 | CT_ITS ---
EXAMINATION: CTA chest PE protocol DATE: 08/16/2022 21:52 INDICATION: Shortness of breath. Syncope. Elevated d-dimer. Recent surgery. TECHNIQUE: Computed tomography angiography (CTA) of the chest was performed with 100 mL Omnipaque-350 intravenous contrast timed to evaluate the pulmonary arteries. Coronal maximum intensity projection 3D-reconstructions were created by the technologist. Automated exposure control and iterative reconst ruction technique were employed. Exam dose: 453.19 mGy-cm total exam DLP. COMPARISON: 03/08/2019 CT pulmonary scan FINDINGS: There is diagnostic contrast enhancement of the pulmonary arteries and no evidence of pulmo nary embolism. There is atherosclerosis but no evidence of aneurysm of the thoracic aorta. Normal heart size. No per icardial or pleural effusion. No hilar or mediastinal mass lesion or lymphadenopathy. The thyroid gla nd is unremarkable. No pulmonary infiltrate or consolidation or pulmonary mass lesion. No suspicious osteolytic or osteoblastic lesions. There is degenerative spurring of the thoracic spin e. IMPRESSION: No evidence of pulmonary embolism Reviewed, dictated and finalized at [facility]. Reviewed, dictated and finalized at [facility]. [employer] [facility]
--- NOTE | 2022-08-16 20:52 | ECG_ITS ---
Measurements Intervals [place] Rate: 78 P: 64 SD: 150 QRS: 60 QRSD: 142 T: 32 QT: 374 QTc: 429 Interpretive Statements SINUS RHYTHM RIGHT BUNDLE BRANCH BLOCK [120+ ms QRS DURATION, UPRIGHT V1, 40+ ms S IN I/aVL/V4/V5/V6] COMPARED TO ECG 01/15/2021 02:18:36 NO SIGNIFICANT CHANGES Electronically Signed On 08-17-2022 11:16:10 CREDIT AND COLLECTIONS ANALYST by Joseph Quiles M.D.
--- NOTE | 2022-08-16 20:57 | ED.SYNCOPE ---
HPI - Syncope General Chief Complaint: Syncope Stated Complaint: weakness, lightheaded Source: patient Mode of arrival: EMS Limitations: no limitations History of Present Illness HPI narrative: This is a 52 year old male that presents to the ER for a pre-syncopal episode today. Reports he was at home and started to feel lightheaded and had blurry vision. Reports he started to feel nauseous and vomiting. He was able to lower himself to the floor in the bathroom. Reports he continues to feel generally weak and lightheaded. Denies fever, chest pain, shortness of breath, or abdominal pain. Related Data Home Medications Medication Instructions Recorded Confirmed Eliquis 5 mg 08/16/22 atorvastatin 40 mg 08/16/22 losartan 50 mg tablet 50 mg 08/16/22 Allergies Allergy/AdvReac Type Severity Reaction Status Date / Time No Known Allergies Allergy Verified 08/16/22 21:01 Review of Systems Review of Systems: CONSTITUTIONAL: Denies fever EYES: Reports visual changes ENT: Reports rhinorrhea, congestion CARDIOVASCULAR: Reports edema. Denies chest pain RESPIRATORY: Reports cough. Denies dyspnea. GASTROINTESTINAL: Reports nausea, vomiting NEUROLOGIC: Denies numbness, or weakness. PSYCHIATRIC: Reports anxiety All systems reviewed & are unremarkable except as noted in HPI and below PMFSH Past Medical History Medical History (Updated 08/17/22 @ 00:08 by Marj Anders PA-C) Alcoholism History of peripheral vascular disease Tobacco dependence Surgical History Surgical History (Updated 08/16/22 @ 23:23 by Marj Anders PA-C) S/P peripheral artery angioplasty with stent placement Family History Family History Father Lung cancer Heart disease Diabetes mellitus Other Alcoholism Social History Social History Social History: S urrogate decision maker: Rena Santoyo, . Code status: Full code. Smoking packs per day: 2 Smoking cigarettes per day: 40.0 Years smoked: 15 Smoking pack-years: 30.00 Smoking status: Current every day smoker Tobacco type: cigarettes Second hand tobacco smoke exposure: Yes Additional smoking assessment comments: Patient began smoking at age 12, and is now up to 2 packs a day. Alcohol intake: current Drinks per week: 8 Substance use: current Substance use type: marijuana Other substance usage details: Smokes marijuana 3 times a day. Last use: 04/18/2020 Additional living arrangements comments: Patient lives with his and their 5 children. Gender identity (if verbalized by the patient): Male Spiritual care concerns: No Exam Narrative: GENERAL: Well-appearing, well-nourished, and in no acute distress. HEAD: Normocephalic, atraumatic. EYES: PERRLA and EOMI. ENT: Nares clear, no rhinorrhea or epistaxis. Mucous membranes moist. Oropharynx without tonsillar hypertrophy exudate or other lesions. Bilateral TMs pearly roca non-bulging NECK: Supple. No adenopathy or masses. CHEST: Clear to auscultation. No respiratory distress. No wheezes rales or rhonchi HEART: Regular rate and rhythm. No murmur heard. Normal peripheral pulses. ABDOMEN: Soft, nontender, nondistended, normal active bowel sounds. EXTREMITIES: Normal range of motion. Mild non-pitting edema to the left lower extremity, no overlying erythema. Able to doppler DP pulses bilaterally. Normal capillary refill SKIN: Warm, dry, no rash. NEURO: No focal deficits. Alert and oriented x3. Cranial nerves II through XII grossly intact PSYCH: Normal mood and affect Course Course Emergency Course: 23:08 Patient reports feeling much better. Reports he is hungry Vital Signs Vital signs: Vital Signs Pulse Rate 89 08/16/22 20:47 Respiratory Rate 13 08/16/22 20:47 Blood Pressure 121/71 08/16/22 20:47 Pulse Oximetry 100 08/16/22 20:47 Oxygen Delivery Room Air 08/16/22 20:47
[2022-08-16 20:59] LABS: Basophils Absolute Auto 0.1 K/mm3 (0.0-0.1); Basophils Percent Auto 1.1 % (0.2-1.2); Eosinophils Absolute Auto 0.6 K/mm3 (0-0.3); Eosinophils Percent Auto 6.3 % (0-4.4); Hematocrit 37.9 % (42.0-52.0); Hemoglobin 12.9 g/dL (14.0-18.0); Immature Granulocyte Absolute 0.05 K/mm3 (0.00-0.031); Immature Granulocyte Percent A 0.5 % (0-0.5); Lymphocytes Absolute Auto 3.61 K/mm3 (0.9-3.2); Lymphocytes Percent Auto 35.4 % (18.3-44.2); Mean Corpuscular Hemoglobin 32.7 pg (26-34); Mean Corpuscular Volume 96.2 fl (80-100); Mean Platelet Volume 9.8 fl (7.4-10.4); Monocytes Absolute Auto 0.8 K/mm3 (0.1-0.6); Monocytes Percent Auto 7.9 % (2.6-8.5); Neutrophils Percent Auto 48.8 % (45.5-73.1); Platelet Count Result 277 k/mm3 (150-375); Red Blood Count 3.94 M/mm3 (4.6-6.20); Red Cell Distribution Width 13.2 % (11.5-14.5); White Blood Count 10.2 K/mm3 (4.5-10.0)
[2022-08-16 21:09] LABS: Alanine Aminotransferase 23 U/L (6-50); Albumin Level 4.4 g/dL (3.5-5.1); Alkaline Phosphatase 72 U/L (38-126); Anion Gap 7 mmol/L (8-16); Aspartate Amino Transferase 28 U/L (17-59); Bilirubin,Total 0.4 mg/dL (0.2-1.3); Blood Urea Nitrogen 14 mg/dL (9-20); Carbon Dioxide 28 mmol/L (22-30); Chloride 101 mmol/L (98-107); Estimated CRCL calculation 80 ml/min; Estimated Glomerular Filt Rate > 60; Glucose 102 mg/dL (65-110); Potassium 4.2 mmol/L (3.4-5.0); Sodium 136 mmol/L (137-145)
[2022-08-16 21:10] LABS: INR 1.1; Partial Thromboplastin Time 29.7 SECONDS (22.3-36.8); Prothrombin Time 13.7 Seconds (11.1-14.7)
[2022-08-16 21:12] LABS: D Dimer 0.75 ug/mL (<0.48)
[2022-08-16] MEDS: SODIUM CHLORIDE 0.9% IV 1,000 ML 999 ML IV CONT (21:22)
--- NOTE | 2022-08-16 21:22 | PC.NURSE ---
Pt has + pedal pulses bilaterally using Doppler, marked.
[2022-08-16 22:30] LABS: Influenza A QL RT-PCR Negative (Negative); Influenza B QL RT-PCR Negative (Negative); SARS-CoV-2 RNA PCR Negative
[2022-08-16 23:51] LABS: Troponin I < 0.012 ng/mL (0.000-0.034)
== END 2022-08-17 00:55 | disposition home or self-care (01) ==
PROVIDERS: Emergency Provider Physician Assistant; PCP Physician Assistant
DX: R55 Syncope and collapse (principal); R79.1 Abnormal coagulation profile; Z20.822 Contact with and (suspected) exposure to COVID-19; I73.9 Peripheral vascular disease, unspecified; F17.210 Nicotine dependence, cigarettes, uncomplicated; Z95.5 Presence of coronary angioplasty implant and graft; Z79.01 Long term (current) use of anticoagulants; I45.10 Unspecified right bundle-branch block
CPT/HCPCS: 36415; 71275; 80053; 84484; 85025; 85380; 85610; 85730; 87636; 93005; 96360; 99284; J7030; Q9967

== ENCOUNTER 2022-08-17 07:29 | Outpatient (CLI) | payer OTHER, SELFPAY ==
--- NOTE | ~2022-08-17 | US_ITS ---
US venous doppler LE DATE: 08/17/2022 08:33 INDICATION: Swelling. Recent surgical procedure. TECHNIQUE: Real-time and color flow imaging and Doppler analysis of the veins of the left lower extre mity COMPARISON: 07/20/2022 Venous duplex examination of both lower extremities FINDINGS: There is spontaneous and phasic flow and normal augmentation and color flow signal and norm al compression of the left common femoral, femoral, popliteal and peroneal and posterior tibial veins . The left greater saphenous vein is patent. There is no evidence of deep venous thrombosis. There is a prominent area of fluid density in the left leg lateral to the incision, likely hematoma o r seroma. IMPRESSION: No evidence of deep venous thrombosis of left lower extremity Prominent fluid accumulation in the left leg lateral to recent incision, likely hematoma or seroma Reviewed, dictated and finalized at [facility]. Reviewed, dictated and finalized at [facility]. [employer]
== END 2022-08-17 07:30 | disposition home or self-care (01) ==
PROVIDERS: PCP Physician Assistant
DX: M79.89 Other specified soft tissue disorders (principal)
CPT/HCPCS: 93971

== ENCOUNTER 2023-05-18 17:17 | Emergency (ER) | payer OTHER, SELFPAY ==
--- NOTE | 2023-05-18 17:26 | ED.GENADULT ---
HPI - General Adult General Chief complaint: Upper Respiratory Infection Stated complaint: sinus issue Time Seen by Provider: 05/18/23 17:26 Source: patient, RN notes reviewed and old records reviewed Mode of arrival: ambulatory Limitations: no limitations History of Present Illness HPI narrative: 53-year-old male presents to the [facility] with complaints of nasal discharge. Tested positive for COVID 21 days ago and still having some congestion. Related Data Home Medications Medication Instructions Recorded Confirmed losartan 50 mg tablet 50 mg PO DAILY 08/16/22 05/18/23 apixaban 5 mg tablet (Eliquis) 5 mg PO BID 05/18/23 05/18/23 atorvastatin 40 mg tablet 40 mg PO HS 05/18/23 05/18/23 omeprazole 40 mg capsule,delayed 40 mg PO DAILY 05/18/23 05/18/23 release Allergies Allergy/AdvReac Type Severity Reaction Status Date / Time No Known Allergies Allergy Verified 05/18/23 17:21 Review of Systems Review of Systems: All systems reviewed & are unremarkable except as noted in HPI and below Constitutional: Constitutional: Reports no additional constitutional complaints Eyes: Eyes: Reports no additional eye complaints ENT: Reports as per HPI, Reports facial pain, Reports nasal congestion, Reports nasal discharge and Reports sinus pressure Cardiovascular: Cardiovascular: Reports no additional cardiovascular complaints, Denies chest pain and Denies dyspnea Respiratory: Respiratory: Reports no additional respiratory complaints, Denies chest congestion, Denies cough and Denies dyspnea Gastrointestinal: Gastrointestinal: Reports no additional gastrointestinal complaints, Denies abdominal pain, Denies nausea and Denies vomiting Musculoskeletal: Musculoskeletal: Reports no additional musculoskeletal complaints Integumentary/Breasts: Skin/Breast: Reports system reviewed and no additional complaints, except as docu Neurologic: Reports system reviewed and no additional complaints, except as documented Psychiatric: Psychiatric: Reports no additional psychiatric complaints Allergic/Immunologic: Allergic/Immunologic: Reports no additional allergic/immunologic complaints [facility] Past Medical History Medical History Alcoholism History of peripheral vascular disease Tobacco dependence Surgical History Surgical History S/P peripheral artery angioplasty with stent placement Family History Family History Father Lung cancer Heart disease Diabetes mellitus Other Alcoholism Social History Social History Social History: S urrogate decision maker: Rena Santoyo, . Code status: Full code. Smoking packs per day: 2 Smoking cigarettes per day: 40.0 Years smoked: 15 Smoking pack-years: 30.00 Smoking status: Current every day smoker Tobacco type: cigarettes Second hand tobacco smoke exposure: Yes Additional smoking assessment comments: Patient began smoking at age 12, and is now up to 2 packs a day. Alcohol intake: current Drinks per week: 8 Substance use: current Substance use type: marijuana Other substance usage details: Smokes marijuana 3 times a day. Last use: 04/18/2020 Additional living arrangements comments: Patient lives with his and their 5 children. Occupation/Education: unemployed Gender identity (if verbalized by the patient): Male Spiritual care concerns: No Comments At the time of my signature, I reviewed and agree with the nursing past medical, surgical, social, and family history. There is no relevant family history pertinent to the patient complaint. Exam Const: General: cooperative, healthy appearing, comfortable, no acute distress, well developed, alert and well nourished Nutritional Appearance: well nourished Orientation/consciousness
[2023-05-18 17:27] VITALS: BP 140/70; PULSE 83; RESP 16; TEMP 36.2; O2SAT 100
== END 2023-05-18 17:38 | disposition home or self-care (01) ==
PROVIDERS: Emergency Provider Nurse Practitioner; PCP Physician Assistant
DX: J32.9 Chronic sinusitis, unspecified (principal); F17.210 Nicotine dependence, cigarettes, uncomplicated; I73.9 Peripheral vascular disease, unspecified
CPT/HCPCS: 99213; G0463

== ENCOUNTER 2023-10-13 12:37 | Emergency (ER) | payer OTHER, SELFPAY ==
[2023-10-13 12:45] VITALS: BP 152/78; PULSE 98; RESP 16; TEMP 37.4; O2SAT 97
--- NOTE | 2023-10-13 12:54 | ED.DENTAL ---
HPI - Dental/Oral General Chief complaint: Dental/Oral Stated complaint: left side tooth pain Source: patient, RN notes reviewed and old records reviewed Mode of arrival: ambulatory Limitations: no limitations History of Present Illness HPI Narrative: 53-year-old male patient presents to [facility] with complaints of left upper dental pain for 1 week. Patient states does not have dentist. Patient taking [id number] pain medications with little relief. MD Complaint: tooth pain Location: Tooth # (15) Onset (ago): week(s) (1) Duration: constant Severity: moderate Related Data Home Medications Medication Instructions Recorded Confirmed losartan 50 mg tablet 50 mg PO DAILY 08/16/22 10/13/23 apixaban 5 mg tablet (Eliquis) 5 mg PO BID 05/18/23 10/13/23 atorvastatin 40 mg tablet 40 mg PO HS 05/18/23 10/13/23 omeprazole 40 mg capsule,delayed 40 mg PO DAILY 05/18/23 10/13/23 release Allergies Allergy/AdvReac Type Severity Reaction Status Date / Time No Known Allergies Allergy Verified 10/13/23 12:40 Review of Systems Constitutional: Constitutional: Reports no additional constitutional complaints, Denies body ache(s), Denies chills, Denies fatigue, Denies fever(s) and Denies headache(s) Eyes: Eyes: Reports no additional eye complaints and Denies blurry vision ENT: Reports system reviewed and no additional complaints, except as documented, Reports dental pain, Denies vertigo, Denies dizziness, Denies ear discharge, Denies otalgia, Denies facial pain, Denies headache(s), Denies nasal congestion, Denies nasal discharge, Denies sinus pain, Denies sinus pressure and Denies sore throat Cardiovascular: Cardiovascular: Reports no additional cardiovascular complaints, Denies chest pain, Denies chest pain at rest, Denies rapid heart rate and Denies dyspnea Respiratory: Respiratory: Reports no additional respiratory complaints, Denies chest congestion, Denies cough, Denies pain on inspiration, Denies pain with cough and Denies dyspnea Gastrointestinal: Gastrointestinal: Denies abdominal pain, Denies diarrhea, Denies nausea and Denies vomiting Integumentary/Breasts: Skin/Breast: Denies rash Neurologic: Reports system reviewed and no additional complaints, except as documented, Denies vertigo, Denies dizziness and Denies headache(s) Endocrine: Endocrine: Denies fatigue PMFSH Past Medical History Medical History Alcoholism History of peripheral vascular disease Tobacco dependence Surgical History Surgical History S/P peripheral artery angioplasty with stent placement Family History Family History Father Lung cancer Heart disease Diabetes mellitus Other Alcoholism Social History Social History Social History: S urrogate decision maker: Rena Santoyo, . Code status: Full code. Smoking packs per day: 2 Smoking cigarettes per day: 40.0 Years smoked: 15 Smoking pack-years: 30.00 Smoking status: Current every day smoker Tobacco type: cigarettes Second hand tobacco smoke exposure: Yes Additional smoking assessment comments: Patient began smoking at age 12, and is now up to 2 packs a day. Alcohol intake: current Drinks per week: 8 Substance use: current Substance use type: marijuana Other substance usage details: Smokes marijuana 3 times a day. Last use: 04/18/2020 Additional living arrangements comments: Patient lives with his and their 5 children. Occupation/Education: unemployed Gender identity (if verbalized by the patient): Male Spiritual care concerns: No Comments At the time of my signature, I reviewed and agree with the nursing past medical, surgical, social, and family history. There is no relevant family history pertinent to the patien
== END 2023-10-13 13:06 | disposition home or self-care (01) ==
PROVIDERS: Emergency Provider Registered Nurse; PCP Physician Assistant
DX: K04.7 Periapical abscess without sinus (principal); F17.210 Nicotine dependence, cigarettes, uncomplicated; F12.90 Cannabis use, unspecified, uncomplicated; I73.9 Peripheral vascular disease, unspecified; Z95.820 Peripheral vascular angioplasty status with implants and grafts; Z79.01 Long term (current) use of anticoagulants
CPT/HCPCS: 99213; G0463

== ENCOUNTER 2024-02-26 19:06 | Emergency (ER) | payer OTHER, SELFPAY ==
--- NOTE | 2024-02-26 19:10 | ED.URI ---
HPI - URI/Sore Throat General Chief Complaint: Upper Respiratory Infection Stated Complaint: sinus issue Time Seen by Provider: 02/26/24 19:22 Source: patient and RN notes reviewed Mode of arrival: ambulatory Limitations: no limitations History of Present Illness HPI Narrative: 53-year-old male presents with concern for 3 week history of sinus congestion, drainage, sinus pain. Reports purulence foul-smelling and felt a sting drainage. He denies fever. Denies new cough. He has been taking antihistamine MD elicited complaint: nasal congestion and sinus pain Related Data Allergies Allergy/AdvReac Type Severity Reaction Status Date / Time No Known Allergies Allergy Verified 02/26/24 19:11 Review of Systems Review of Systems: CONSTITUTIONAL: Denies malaise, chills, sweats, or fever. EYES: Denies visual changes, redness, or discharge. ENT: Reports rhinorrhea, congestion, sinus pain CARDIOVASCULAR: Denies chest pain, palpitations, or edema. RESPIRATORY: denies cough. Denies dyspnea. GASTROINTESTINAL: Denies abdominal pain, nausea, vomiting, diarrhea SKIN: Denies rash or itching. MUSCULOSKELETAL: Denies myalgia. NEUROLOGIC: Denies headache. All systems reviewed & are unremarkable except as noted in HPI and below PMFSH Past Medical History Medical History Alcoholism History of peripheral vascular disease Tobacco dependence Surgical History Surgical History S/P peripheral artery angioplasty with stent placement Family History Family History Father Lung cancer Heart disease Diabetes mellitus Other Alcoholism Social History Social History Social History: S urrogate decision maker: Rena Santoyo, . Code status: Full code. Smoking packs per day: 2 Smoking cigarettes per day: 40.0 Years smoked: 15 Smoking pack-years: 30.00 Smoking status: Current every day smoker Tobacco type: cigarettes Second hand tobacco smoke exposure: Yes Additional smoking assessment comments: Patient began smoking at age 12, and is now up to 2 packs a day. Alcohol intake: current Drinks per week: 8 Substance use: current Substance use type: marijuana Other substance usage details: Smokes marijuana 3 times a day. Last use: 04/18/2020 Additional living arrangements comments: Patient lives with his and their 5 children. Occupation/Education: unemployed Gender identity (if verbalized by the patient): Male Spiritual care concerns: No Comments At time of signature, agree with nursing past medical, surgical, social and family history. There is no relevant family history pertinent to the presenting complaint Exam Narrative: GENERAL: Well-appearing, well-nourished, and in no acute distress. HEAD: Normocephalic EYES: PERRLA, conjunctivae clear ENT: Nares clear, turbinates edematous and erythematous. Mucous membranes moist. TM pearly roca with dull light reflex bilaterally; no tragal tenderness. Oropharynx not erythematous without lesions. Tonsils not enlarged and without exudate, no drooling, no hoarseness, no trismus, uvula midline. NECK: Supple. No lymphadenopathy CHEST: Clear to auscultation, breath sounds equal. No wheezing, rhonchi, rales, or stridor. No respiratory distress, speaks in full sentences. HEART: Regular rate and rhythm. No murmur heard. SKIN: Warm, dry, no rash. NEURO: Alert and oriented x3. PSYCH: Normal mood and affect Course Course Emergency Course: Patient is aware of diagnosis, understands and agrees to treatment plan. Anticipatory guidance given. Patient agrees to follow-up as directed and is aware of reasons to seek care at the emergency department. Portions of this record may have been created with voice recognition software Level of Care
[2024-02-26 19:15] VITALS: BP 137/80; PULSE 83; RESP 16; TEMP 36.2; O2SAT 99
== END 2024-02-26 19:35 | disposition home or self-care (01) ==
PROVIDERS: Emergency Provider Nurse Practitioner; PCP Physician Assistant
DX: J01.90 Acute sinusitis, unspecified (principal); F17.210 Nicotine dependence, cigarettes, uncomplicated; I73.9 Peripheral vascular disease, unspecified
CPT/HCPCS: 99213; G0463